=== PATIENT | female | born 1940 | race Caucasian/White ===

== ENCOUNTER 2016-10-22 12:45 | Inpatient (IN) | payer OTHER ==
[2016-10-22] MEDS ORDERED: predniSONE 20 MG TABLET (UD) PO ONE (13:09)
--- NOTE | 2016-10-22 13:17 | PDOC ---
History of Present Illness - General History Source: Patient Exam Limitations: No Limitations - History of Present Illness Initial Comments: 10/22/16 13:18 Patient is a 76 year old female with pmhx of COPD who presents to the ED with cough. Patient states that she was told by Dr. Loya office to present to the ED to be seen by him in [facility] for her worsening cough and bronchitis. She denies any recent cold, head cold or virus. Dr. Arzate is PCP and would like to be notified. <Cora Kapadia - Last Filed: 10/22/16 16:03> <Tj Wyatt - Last Filed: 10/22/16 16:05> - General Chief Complaint: Shortness of Breath Stated Complaint: SOB Time Seen by Provider: 10/22/16 12:57 Past History <Cora Kapadia - Last Filed: 10/22/16 16:03> - Past Medical History Anemia: No Asthma: No Cancer: No Cardiac Disorders: No CVA: No COPD: No CHF: No Dementia: No Diabetes: No GI Disorders: No Disorders: No HTN: Yes Hypercholesterolemia: No Liver Disease: No Seizures: No Thyroid Disease: No Other medical history: CHRONIC BRONCHITIS - Psycho/Social/Smoking Cessation Hx Anxiety: No Suicidal Ideation: No Smoking History: Former smoker Have you smoked in the past 12 months: No If you are a former smoker, when did you quit?: 1954 Information on smoking cessation initiated: No Hx Alcohol Use: No Drug/Substance Use Hx: No Substance Use Type: None Hx Substance Use Treatment: No <Tj Wyatt - Last Filed: 10/22/16 16:05> - Past Medical History Allergies/Adverse Reactions: Allergies Allergy/AdvReac Type Severity Reaction Status Date / Time No Known Drug Allergies Allergy Verified 10/22/16 12:46 Home Medications: Ambulatory Orders No Home Medications 0 dose .ROUTE UTDICT 06/18/12 Review of Systems - Review of Systems Able to Perform ROS?: Yes Comments:: 10/22/16 13:19 General: Absent: fever, chills Respiratory: +cough, +wheezing, +SOB : Absent: nausea, vomiting <Cora Kapadia - Last Filed: 10/22/16 16:03> *Physical Exam - Vital Signs Last Vital Signs Temp Pulse Resp BP Pulse Ox 98.3 F 96 H 18 137/64 93 L 10/22/16 12:47 10/22/16 12:47 10/22/16 12:47 10/22/16 12:47 10/22/16 12:47 <Cora Kapadia - Last Filed: 10/22/16 16:03> - Vital Signs Last Vital Signs Temp Pulse Resp BP Pulse Ox 98.3 F 96 H 18 137/64 93 L 10/22/16 12:47 10/22/16 12:47 10/22/16 12:47 10/22/16 12:47 10/22/16 12:47 - Physical Exam General Appearance: Yes: Nourished, Appropriately Dressed. No: Apparent Distress HEENT: positive: Normal ENT Inspection Neck: positive: Supple. negative: Tender Respiratory/Chest: positive: Lungs Clear (GOOD B/L AIR ENTRY. EXP WHEEZING), Rhonchi Cardiovascular: positive: Regular Rhythm, Regular Rate Gastrointestinal/Abdominal: positive: Soft. negative: Tender Extremity: negative: Pedal Edema Integumentary: positive: Normal Color. negative: Rash Neurologic: positive: Fully Oriented, Alert, Normal Mood/Affect, Normal Response , Motor Strength 5/5 <jT Wyatt - Last Filed: 10/22/16 16:05> Heart Score/ECG Review #1 10/22/16 15:25 ECG was reviewed by Dr. Mario. Impression: Normal sinus rhythm Vent rate 96 bpm <Cora Kapadia - Last Filed: 10/22/16 16:03> ED Treatment Course - LABORATORY CBC & Chemistry Diagram: 10/22/16 15:01 10/22/16 15:00 <Cora Kapadia - Last Filed: 10/22/16 16:03> - LABORATORY CBC & Chemistry Diagram: 10/22/16 15:01 10/22/16 15:00 <Tj Wyatt - Last Filed: 10/22/16 16:05> Medical Decision Making - Medical Decision Making 10/22/16 13:[address] Pepper. 10/22/16 14:51 A call was placed to Dr. Arzate at his office. Awaiting call back for Dr. Kamara. 10/22/16 15:16 A second call was placed to Dr. Kamara. Awaiting call back from Dr. Auguste. <Cora Kapadia - Last Filed: 10/22/16 16:03> *DC/Admit/Observation/Transfer - Attestations Scribe Attestion: 10/22/16 13:19 Documentation prepared by BRITANY Padron, acting as medical delivery driver for Tj Wyatt MD/DO. <Cora Kapadia - Last Filed: 10/22/16 16:03> - Discharge Dispostion Admit: Yes <Tj Wyatt - Last Filed: 10/22/16 16:05> Diagnosis at time of Disposition: CAP (community acquired pneumonia) - Discharge Dispostion Condition at time of disposition: Stable - Referrals Referrals: STAFF,NOT ON [Primary Care Provider] -
[2016-10-22] MEDS ORDERED: predniSONE 20 MG TABLET (UD) ONE (13:21)
[2016-10-22] MEDS: ALBUTEROL SO4 2.5/IPRATROPIUM 0.5 INH SOL 3 ML VIAL.NEB. NEB SCH ×4 (13:22→14:45)
[2016-10-22] MEDS ORDERED: ALBUTEROL SO4 2.5/IPRATROPIUM 0.5 INH SOL 3 ML VIAL.NEB. NEB ONE (13:26)
[2016-10-22] MEDS ORDERED: AZITHROMYCIN IVPB 500 MG in DEXTROSE 5%-WATER - 250 ML IVPB ONE (14:49)
[2016-10-22] MEDS ORDERED: CEFTRIAXONE 1 GM in DEXTROSE 5%-WATER - 100 ML IVPB ONE (14:49)
[2016-10-22] MEDS ORDERED: AZITHROMYCIN IVPB 250 ML IVPB ONE (15:10)
[2016-10-22] MEDS ORDERED: CEFTRIAXONE 50 ML ONE (15:11)
[2016-10-22 15:29] LABS: BASOPHIL 0.2 % (0-2.0); EOSINOPHIL 0.2 % (0-4.5); MCH 28.7 pg (25.7-33.7); MEAN PLT VOLUME 8.2 fl (7.5-11.1); NEUTROPHILS 92.1 % (42.8-82.8); PLATELET COUNT 568 K/MM3 (134-434); RDW 14.5 % (11.6-15.6); WHITE BLOOD COUNT 16.6 K/mm3 (4.0-10.0)
--- NOTE | 2016-10-22 16:03 | CON.PULM ---
Consult Consult Specialty:: PULM/CCM Referred by:: ER Reason for Consultation:: Increasing SOB - History of Present Illness Chief Complaint: Cough / SOB / increasing sputum History of Present Illness: 76 F, well known to me from the outpatient setting. 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 History of chronic bronchitis as well. Presented to the ER after she reported to me increasing productive cough and progressive SOB for the past several days. No travel history or sick contacts. No hemoptysis. No night sweats. - History Source History Provided By: Patient Limitations to Obtaining History: No Limitations - Past Medical History Pulmonary: Yes: Bronchitis, Other (NELI ) - Alcohol/Substance Use Hx Alcohol Use: No - Smoking History Smoking history: Former smoker Have you smoked in the past 12 months: No If you are a former smoker, when did you quit?: 1954 Home Medications - Allergies Allergies/Adverse Reactions: Allergies Allergy/AdvReac Type Severity Reaction Status Date / Time No Known Drug Allergies Allergy Verified 10/22/16 12:46 - Home Medications Home Medications: Ambulatory Orders No Home Medications 0 dose .ROUTE UTDICT 06/18/12 Review of Systems - Review of Systems Constitutional: reports: Fever, Malaise, Weakness. denies: Chills, Night Sweats , Unintentional Wgt. Loss Eyes: reports: No Symptoms HENT: reports: No Symptoms Neck: reports: No Symptoms Cardiovascular: reports: Shortness of Breath. denies: Chest Pain, Edema, Palpitations Respiratory: reports: Cough, SOB, SOB on Exertion, Wheezing. denies: Hemoptysis Gastrointestinal: reports: No Symptoms Genitourinary: reports: No Symptoms Breasts: reports: No Symptoms Reported Musculoskeletal: reports: No Symptoms Integumentary: reports: No Symptoms Neurological: reports: No Symptoms Endocrine: reports: No Symptoms Hematology/Lymphatic: reports: No Symptoms Psychiatric: reports: No Symptoms Physical Exam Vital Sings: Vital Signs Temperature 98.3 F 10/22/16 12:47 Pulse Rate 96 H 10/22/16 12:47 Respiratory Rate 18 10/22/16 12:47 Blood Pressure 137/64 10/22/16 12:47 O2 Sat by Pulse Oximetry (%) 93 L 10/22/16 12:47 Constitutional: Yes: No Distress, Calm Eyes: Yes: Conjunctiva Clear, EOM Intact HENT: Yes: Atraumatic, Normocephalic Neck: Yes: Supple, Trachea Midline Cardiovascular: Yes: Regular Rate and Rhythm Respiratory: Yes: Cough, Diminished, Rhonchi, SOB. No: Accessory Muscle Use, Rales, Stridor, Tachypnea, Wheezes ...Inspection: Yes: WNL ...Clubbing: No Gastrointestinal: Yes: Normal Bowel Sounds, Soft Renal/: Yes: WNL Musculoskeletal: Yes: WNL Extremities: Yes: WNL Edema: No Peripheral Pulses WNL: Yes Integumentary: Yes: WNL Neurological: Yes: WNL, Alert, Oriented ...Motor Strength: WNL Psychiatric: Yes: WNL, Alert, Oriented Labs: CBC, BMP 10/22/16 15:01 Imaging - Results Chest X-ray: Report Reviewed, Image Reviewed (RLL infiltrate) Problem List - Problems (1) CAP (community acquired pneumonia) Code(s): J18.9 - PNEUMONIA, UNSPECIFIED ORGANISM (2) Chronic bronchitis Code(s): J42 - UNSPECIFIED CHRONIC BRONCHITIS Assessment/Plan PLAN: Patient received Rocephin/Zithromax already -> Can continue Check sputum Check urine antigen O2 as needed BD TX VTE prophylaxis Daily Medrol for CAP Thank you. Dr Pepper
[2016-10-22 16:04] LABS: CALCIUM 8.5 mg/dL (8.5-10.1); CREATININE 0.7 mg/dL (0.55-1.02)
[2016-10-22] MEDS ORDERED: ALBUTEROL SO4 0.083% IH SOL 2.5 MG/3 ML VIAL.NEB. NEB PRN (16:05)
--- NOTE | 2016-10-22 17:39 | HP ---
CHIEF COMPLAINT: Cough PCP: Dr. Arzate [facility] Coordinator: Dr. Pepper HISTORY OF PRESENT ILLNESS: This is a 76 year old female with a history of HTN ( takes meds "when I need it"), pulmonary NELI, and chronic bronchitis who presented to the ED today complaining of one week of worsening cough productive of green sputum and some associated shortness of breath. She denies hemoptysis, fevers/chills, fatigue/malaise, chest pain, or any other symptoms. ER course was notable for: (1) CXR: Segmental RLL infiltrate (2) SpO2 93% on RA (3) SIRS 16.6, HR 96 Recent Travel: None Social History: Lives alone but has help from two sisters. Retired [employer]. Smoking: Former smoker, quit 1954. Alcohol: None Allergies No Known Drug Allergies Allergy (Verified 10/22/16 12:46) HOME MEDICATIONS: Home Medications Medication Instructions Recorded No Home Medications 0 dose .ROUTE UTDICT 06/18/12 REVIEW OF SYSTEMS CONSTITUTIONAL: Absent: fever, chills, diaphoresis, generalized weakness, malaise, loss of appetite, weight change HEENT: Absent: rhinorrhea, nasal congestion, throat pain, throat swelling, difficulty swallowing, mouth swelling, ear pain, eye pain, visual changes CARDIOVASCULAR: Absent: chest pain, syncope, palpitations, irregular heart rate, lightheadedness , peripheral edema RESPIRATORY: See HPI GASTROINTESTINAL: Absent: abdominal pain, abdominal distension, nausea, vomiting, diarrhea, constipation, melena, hematochezia GENITOURINARY: Absent: dysuria, frequency, urgency, hesitancy, hematuria, flank pain, genital pain MUSCULOSKELETAL: Absent: myalgia, arthralgia, joint swelling, back pain, neck pain SKIN: Absent: rash, itching, pallor HEMATOLOGIC/IMMUNOLOGIC: Absent: easy bleeding, easy bruising, lymphadenopathy, frequent infections ENDOCRINE: Absent: unexplained weight gain, unexplained weight loss, heat intolerance, cold intolerance NEUROLOGIC: Absent: headache, focal weakness or paresthesias, dizziness, unsteady gait, seizure, mental status changes, bladder or bowel incontinence PSYCHIATRIC: Absent: anxiety, depression, suicidal or homicidal ideation, hallucinations. PHYSICAL EXAMINATION GENERAL: Awake, alert, and fully oriented, in no acute distress. HEAD: Normal with no signs of trauma. EYES: Pupils equal, round and reactive to light, extraocular movements intact, sclera anicteric, conjunctiva clear. No lid lag. EARS, NOSE, THROAT: Ears normal, nares patent, oropharynx clear without exudates. Moist mucous membranes. NECK: Normal range of motion, supple without lymphadenopathy, JVD, or masses. LUNGS: Ronchi at right base. No tachypnea or accessory muscle use. HEART: Mildly tachycardic, regular rate and rhythm, normal S1 and S2 without murmur, rub or gallop. ABDOMEN: Soft, nontender, not distended, normoactive bowel sounds, no guarding, no rebound, no masses. No hepatomegaly or splenomegaly. MUSCULOSKELETAL: Normal range of motion at all joints. No bony deformities or tenderness. No CVA tenderness. UPPER EXTREMITIES: 2+ pulses, warm, well-perfused. No cyanosis. No clubbing. Cap refill <2 seconds. No peripheral edema. LOWER EXTREMITIES: 2+ pulses, warm, well-perfused. No calf tenderness. No peripheral edema. NEUROLOGICAL: Cranial nerves II-XII intact. Normal speech. Normal gait. PSYCHIATRIC: Cooperative. Good eye contact. Appropriate mood and affect. SKIN: Warm, dry, normal turgor, no rashes or lesions noted. ASSESSMENT/PLAN: 76 year old female with sepsis secondary to community-acquired pneumonia. Problem List - Problem (1) CAP (community acquired pneumonia) Assessment/Plan: -Continue Ceftriaxone/Azithromycin -Follow up blood cultures, sputum cultures, urine antigens -O2 2L via nasal cannula -Solu-Medrol 40mg IVPB daily per pulmonology Code(s): J18.9 - PNEUMONIA, UNSPECIFIED ORGANISM (2) Sepsis Assessment/Plan: -Cultures and antibiotics as above -Tylenol 650mg q6h prn fever -Follow WBC Code(s): A41.9 - SEPSIS, UNSPECIFIED ORGANISM (3) Chronic bronchitis Assessment/Plan: -Continue Brovana Code(s): J42 - UNSPECIFIED CHRONIC BRONCHITIS (4) Hypertension Assessment/Plan: -At goal -Continue Norvasc 2.5mg daily Code(s): I10 - ESSENTIAL (PRIMARY) HYPERTENSION (5) DVT prophylaxis Assessment/Plan: -Heparin sq 5000 units tid Code(s): UGL3665 - Visit type - Emergency Visit Emergency Visit: Yes ED Registration Date: 10/22/16 Care time: The patient presented to the Emergency Department on the above date and was hospitalized for further evaluation of their emergent condition. - New Patient This patient is new to me today: Yes Date on this admission: 10/22/16 - Critical Care Critical Care patient: No
[2016-10-22] MEDS ORDERED: ACETAMINOPHEN 325 MG TABLET (FP) PO PRN (17:40)
[2016-10-22] MEDS ORDERED: ONDANSETRON 4 MG/2 ML VIAL IVPB PRN (17:40)
[2016-10-22] MEDS: DOCUSATE SODIUM 100 MG CAPSULE (FP) PO SCH (22:30)
[2016-10-22] MEDS: ARFORMOTEROL TARTRATE 15 MCG/2 ML VIAL NEB SCH (22:40)
[2016-10-22] MEDS: HEPARIN NA (PORCINE) 5,000 UNITS/ML 1ML VIAL SQ SCH (23:30)
[2016-10-22 23:35] VITALS: BMI 24.5
[2016-10-23] MEDS ORDERED: guaiFENesin 200 MG/10 ML 10 ML UNIT-DOSE CUPS PO PRN (01:38)
[2016-10-23] MEDS: DOCUSATE SODIUM 100 MG CAPSULE (FP) PO SCH ×3 (06:38→22:35)
[2016-10-23 08:01] LABS: BASOPHIL 0.2 % (0-2.0); MCH 29.5 pg (25.7-33.7); MCHC 33.4 g/dl (32.0-36.0); MEAN CELL VOLUME 88.2 fl (80-96); MEAN PLT VOLUME 7.8 fl (7.5-11.1); PLATELET COUNT 572 K/MM3 (134-434); RDW 14.2 % (11.6-15.6); WHITE BLOOD COUNT 10.7 K/mm3 (4.0-10.0)
[2016-10-23 08:18] LABS: ALBUMIN 2.3 g/dl (3.4-5.0); ALK PHOS 254 U/L (45-117); ANION GAP 10 (8-16); BILIRUBIN,TOTAL 0.3 mg/dL (0.2-1.0); CALCIUM 9.1 mg/dL (8.5-10.1); CO2 26 mmol/L (21-32); CREATININE 0.6 mg/dL (0.55-1.02); GLUCOSE,RANDOM 102 mg/dL (74-106); MAGNESIUM 2.3 mg/dL (1.8-2.4); SGOT/AST 33 U/L (15-37); SGPT/ALT 43 U/L (12-78); TOT PROT 7.2 g/dl (6.4-8.2)
[2016-10-23] MEDS: ARFORMOTEROL TARTRATE 15 MCG/2 ML VIAL NEB SCH ×2 (09:05→22:46)
[2016-10-23] MEDS: CEFTRIAXONE 50 ML IVPB SCH (09:10)
[2016-10-23] MEDS: HEPARIN NA (PORCINE) 5,000 UNITS/ML 1ML VIAL SQ SCH ×2 (09:11→22:31)
[2016-10-23] MEDS: amLODIPine BESYLATE 5 MG TABLET (FP) PO SCH (09:11)
[2016-10-23] MEDS: AZITHROMYCIN IVPB 250 ML IVPB SCH (09:11)
[2016-10-23] MEDS: methylPREDNISolone NA SUCC 40 MG/1 ML VIAL IVPB SCH (09:11)
[2016-10-23] MEDS ORDERED: PNEUMOC 13-VAL CONJ-DIP CRM/PF 0.5 ML DISP.SYRIN IM ONE (10:00)
--- NOTE | 2016-10-23 13:33 | EKG ---
Test Reason : Blood Pressure : / mmHG Vent. Rate : 096 BPM Atrial Rate : 096 BPM P-R Int : 144 ms QRS Dur : 088 ms QT Int : 386 ms P-R-T Axes : 049 010 050 degrees QTc Int : 487 ms NORMAL SINUS RHYTHM NORMAL ECG WHEN COMPARED WITH ECG OF 18-JUN-2012 15:33, VENT. RATE HAS INCREASED BY 32 BPM Confirmed by TYREL OSBORNE MD ([id number]) on 10/23/2016 1:33:17 PM Referred By: Confirmed By:TYREL OSBORNE MD
--- NOTE | 2016-10-23 14:10 | PN ---
Physical Exam: SUBJECTIVE: Patient seen and examined. feels better than when she came in. intermittent productive cough. denies fevers, chills, n/v, chest pain, sob. breathing room air comfortably. OBJECTIVE: Vital Signs Period Temp Pulse Resp BP Sys/Le Pulse Ox Last 24 Hr 97.3 F-97.7 F 67-81 20-20 128-139/59-60 GENERAL: The patient is awake, alert, and fully oriented, in no acute distress. HEAD: Normal with no signs of trauma. EYES: PERRL, extraocular movements intact, sclera anicteric, conjunctiva clear. No ptosis. ENT: Ears normal, nares patent, oropharynx clear without exudates, moist mucous membranes. NECK: Trachea midline, full range of motion, supple. LUNGS: RLL with expiratory wheezing and scattered crackles, left lung clear. HEART: Regular rate and rhythm, S1, S2 without murmur, rub or gallop. ABDOMEN: Soft, nontender, nondistended, normoactive bowel sounds, no guarding, no rebound, EXTREMITIES: 2+ pulses, warm, well-perfused, no edema. NEUROLOGICAL: Normal speech Laboratory Results - last 24 hr 10/23/16 10/23/16 07:00 07:00 WBC 10.7 H D RBC 3.76 Hgb 11.1 Hct 33.2 MCV 88.2 MCHC 33.4 RDW 14.2 Plt Count 572 H MPV 7.8 Neutrophils % 87.0 H Lymphocytes % 7.4 L D Monocytes % 5.4 Eosinophils % 0.0 D Basophils % 0.2 Sodium 141 Potassium 4.0 D Chloride 105 Carbon Dioxide 26 Anion Gap 10 BUN 15 D Creatinine 0.6 Creat Clearance w eGFR > 60 Random Glucose 102 Calcium 9.1 Magnesium 2.3 Total Bilirubin 0.3 D AST 33 D ALT 43 D Alkaline Phosphatase 254 H D Total Protein 7.2 Albumin 2.3 L D Active Medications Acetaminophen (Tylenol -) 650 mg PO Q4H PRN PRN Reason: FEVER OR PAIN Albuterol Sulfate (Ventolin 0.083% Nebulizer Soln -) 1 amp NEB Q4H PRN PRN Reason: SHORT OF BREATH/WHEEZING Amlodipine Besylate (Norvasc -) 2.5 mg PO DAILY [facility] Last Admin: 10/23/16 09:11 Dose: 2.5 mg Arformoterol Tartrate (Brovana (Restricted To Pulmonology/Resp) -) 1 amp NEB BID [facility] Last Admin: 10/23/16 09:05 Dose: 1 amp Docusate Sodium (Colace -) 100 mg PO TID [facility] Last Admin: 10/23/16 14:02 Dose: Not Given Guaifenesin (Robitussin -) 10 ml PO Q4H PRN PRN Reason: COUGH Last Admin: 10/23/16 02:14 Dose: 10 ml Heparin Sodium (Porcine) (Heparin -) 5,000 unit SQ BID [facility] Last Admin: 10/23/16 09:11 Dose: 5,000 unit Azithromycin (Zithromax 500mg Ivpb (Pre-Docked)) 250 mls @ 250 mls/hr IVPB DAILY [facility] Last Admin: 10/23/16 09:11 Dose: 250 mls/hr Ceftriaxone Sodium (Rocephin 1gm Ivpb (Pre-Docked)) 50 mls @ 100 mls/hr IVPB DAILY [facility] Last Admin: 10/23/16 09:10 Dose: 100 mls/hr Methylprednisolone Sodium Succinate (Solu-Medrol -) 40 mg IVPB DAILY [facility] Last Admin: 10/23/16 09:11 Dose: 40 mg Ondansetron HCl (Zofran Injection) 4 mg IVPB Q6H PRN PRN Reason: NAUSEA ASSESSMENT/PLAN: 76 yr old woman with hx of HTN, pulmonary NELI, chronic bronchitis presents to the ED with productive cough and SOB. #Sepsis secondary to CAP (elevated wbc, RLL infiltrateon cxry, HR96) - rocephin 1gm daily, zithromax 500mg IV daily -- started 10/23 - solumedrol 40mg IVPB daily - bld cx and sputum cx pending - urine ag pending - robutussin, ventolin prn - brovana 1 neb BID - Dr. Fagan consulted #HTN - norvasc 2.5mg daily #DVT - hep TID #Diet: sodium controlled Visit type - Emergency Visit Emergency Visit: Yes ED Registration Date: 10/22/16 Care time: The patient presented to the Emergency Department on the above date and was hospitalized for further evaluation of their emergent condition. - New Patient This patient is new to me today: Yes Date on this admission: 10/23/16 - Critical Care Critical Care patient: No
--- NOTE | 2016-10-23 15:46 | PN ---
Teaching Attending Note Name of Resident: Ej Hahn ATTENDING PHYSICIAN STATEMENT I saw and evaluated the patient. I reviewed the resident's note and discussed the case with the resident. I agree with the resident's findings and plan as documented. SUBJECTIVE: Patient feels better. OBJECTIVE: Vital Signs Period Temp Pulse Resp BP Sys/Le Pulse Ox Last 24 Hr 97.3 F-97.8 F 67-84 20-20 122-139/59-60 95-96 HEART: S1 S2, RRR LUNGS: Diffuse crackles worst at right base ABDOMEN: Soft, non-tender, non-distended, normal BS EXTREMITIES: No edema ASSESSMENT AND PLAN: This is a 76-year-old woman with a history of HTN,, pulmonary NELI, and chronic bronchitis who presented to the ED with cough productive of green sputum and shortness of breath. 1. Sepsis secondary to pneumonia - Improving - Continue Rocephin, Zithromax (day 2) - Sputum culture pending - Blood cultures negative after 24 hrs - Urine Legionella and Pneumococcus Ag negative 2. Chronic bronchitis - Continue Brovana, Albuterol nebs as needed, SoluMedrol 3. Hypertension - Continue Norvasc 4. Pulmonary NELI
--- NOTE | 2016-10-23 15:53 | PN ---
Progress Note (short form) - Note Progress Note: OOB to chair. Feels better today. Congested cough is slightly better. No hemoptysis. Less SOB. WBC improving. Intake & Output 10/20/16 10/21/16 10/22/16 10/23/16 23:59 23:59 23:59 23:59 Intake Total 250 Balance 250 Weight 134 lb 8 oz Last Vital Signs Temp Pulse Resp BP Pulse Ox 97.8 F 75 20 128/60 96 10/23/16 14:00 10/23/16 14:00 10/23/16 14:00 10/23/16 08:19 10/23/16 09:40 Active Medications Acetaminophen (Tylenol -) 650 mg PO Q4H PRN PRN Reason: FEVER OR PAIN Albuterol Sulfate (Ventolin 0.083% Nebulizer Soln -) 1 amp NEB Q4H PRN PRN Reason: SHORT OF BREATH/WHEEZING Amlodipine Besylate (Norvasc -) 2.5 mg PO DAILY [facility] Last Admin: 10/23/16 09:11 Dose: 2.5 mg Arformoterol Tartrate (Brovana (Restricted To Pulmonology/Resp) -) 1 amp NEB BID [facility] Last Admin: 10/23/16 09:05 Dose: 1 amp Docusate Sodium (Colace -) 100 mg PO TID [facility] Last Admin: 10/23/16 14:02 Dose: Not Given Guaifenesin (Robitussin -) 10 ml PO Q4H PRN PRN Reason: COUGH Last Admin: 10/23/16 02:14 Dose: 10 ml Heparin Sodium (Porcine) (Heparin -) 5,000 unit SQ BID [facility] Last Admin: 10/23/16 09:11 Dose: 5,000 unit Azithromycin (Zithromax 500mg Ivpb (Pre-Docked)) 250 mls @ 250 mls/hr IVPB DAILY [facility] Last Admin: 10/23/16 09:11 Dose: 250 mls/hr Ceftriaxone Sodium (Rocephin 1gm Ivpb (Pre-Docked)) 50 mls @ 100 mls/hr IVPB DAILY [facility] Last Admin: 10/23/16 09:10 Dose: 100 mls/hr Methylprednisolone Sodium Succinate (Solu-Medrol -) 40 mg IVPB DAILY [facility] Last Admin: 10/23/16 09:11 Dose: 40 mg Ondansetron HCl (Zofran Injection) 4 mg IVPB Q6H PRN PRN Reason: NAUSEA Constitutional: Yes: No Distress Eyes: Yes: Conjunctiva Clear, EOM Intact HENT: Yes: Atraumatic, Normocephalic Neck: Yes: Supple, Trachea Midline Cardiovascular: Yes: Regular Rate and Rhythm Respiratory: Yes: Cough, RLL coarse Rhonchi No: Accessory Muscle Use, Rales, Stridor, Tachypnea, Wheezes ...Inspection: Yes: WNL ...Clubbing: No Gastrointestinal: Yes: Normal Bowel Sounds, Soft Renal/: Yes: WNL Musculoskeletal: Yes: WNL Extremities: Yes: WNL Edema: No Peripheral Pulses WNL: Yes Integumentary: Yes: WNL Neurological: Yes: WNL, Alert, Oriented ...Motor Strength: WNL Psychiatric: Yes: WNL, Alert, Oriented Labs: Laboratory Results - last 24 hr 10/22/16 10/23/16 10/23/16 15:00 07:00 07:00 WBC 10.7 H D RBC 3.76 Hgb 11.1 Hct 33.2 MCV 88.2 MCHC 33.4 RDW 14.2 Plt Count 572 H MPV 7.8 Neutrophils % 87.0 H Lymphocytes % 7.4 L D Monocytes % 5.4 Eosinophils % 0.0 D Basophils % 0.2 Sodium 136 141 Potassium 3.2 L 4.0 D Chloride 101 105 Carbon Dioxide 24 26 Anion Gap 11 10 BUN 10 D 15 D Creatinine 0.7 D 0.6 Creat Clearance w eGFR > 60 Random Glucose 109 H D 102 Calcium 8.5 9.1 Magnesium 2.3 Total Bilirubin 0.3 D AST 33 D ALT 43 D Alkaline Phosphatase 254 H D Total Protein 7.2 Albumin 2.3 L D Problem List - Problems (1) CAP (community acquired pneumonia) Code(s): J18.9 - PNEUMONIA, UNSPECIFIED ORGANISM (2) Chronic bronchitis - > likely due to known NELI history Code(s): J42 - UNSPECIFIED CHRONIC BRONCHITIS Assessment/Plan Rocephin/Zithromax daily Check sputum O2 as needed BD TX VTE prophylaxis Daily Medrol for CAP CXR in AM VTE prophylaxis Dr Pepper Problem List - Problems (1) CAP (community acquired pneumonia) Code(s): J18.9 - PNEUMONIA, UNSPECIFIED ORGANISM (2) Chronic bronchitis Code(s): J42 - UNSPECIFIED CHRONIC BRONCHITIS
[2016-10-24] MEDS: DOCUSATE SODIUM 100 MG CAPSULE (FP) PO SCH (06:40)
[2016-10-24 08:07] VITALS: BP 146/62; PULSE 73; TEMP 97.8
[2016-10-24 08:26] LABS: BASOPHIL 0.4 % (0-2.0); EOSINOPHIL 0.1 % (0-4.5); MCHC 31.7 g/dl (32.0-36.0); MEAN CELL VOLUME 88.3 fl (80-96); MEAN PLT VOLUME 7.8 fl (7.5-11.1); NEUTROPHILS 77.6 % (42.8-82.8); PLATELET COUNT 635 K/MM3 (134-434); RDW 14.2 % (11.6-15.6); WHITE BLOOD COUNT 12.1 K/mm3 (4.0-10.0)
[2016-10-24 08:53] LABS: CALCIUM 8.6 mg/dL (8.5-10.1)
[2016-10-24 08:57] LABS: CREATININE 0.7 mg/dL (0.55-1.02)
[2016-10-24] MEDS: ARFORMOTEROL TARTRATE 15 MCG/2 ML VIAL NEB SCH (09:30)
[2016-10-24] MEDS: methylPREDNISolone NA SUCC 40 MG/1 ML VIAL IVPB SCH (09:36)
[2016-10-24] MEDS: HEPARIN NA (PORCINE) 5,000 UNITS/ML 1ML VIAL SQ SCH (09:36)
[2016-10-24] MEDS: amLODIPine BESYLATE 5 MG TABLET (FP) PO SCH (09:36)
[2016-10-24] MEDS: AZITHROMYCIN IVPB 250 ML IVPB SCH (09:36)
[2016-10-24] MEDS: CEFTRIAXONE 50 ML IVPB SCH (09:36)
--- NOTE | 2016-10-24 09:44 | DS ---
Physical Exam: SUBJECTIVE: Patient seen and examined feels better, cough has improved. denied fever, chills. eating/toileting/ambulating without difficulty. OBJECTIVE: Vital Signs Period Temp Pulse Resp BP Sys/Le Pulse Ox Last 24 Hr 97.8 F-98.1 F 63-75 20-20 125-146/62-66 95-95 PHYSICAL EXAM GENERAL: The patient is awake, alert, and fully oriented, in no acute distress. EYES: PERRL, extraocular movements intact, sclera anicteric, conjunctiva clear. No ptosis. ENT: oropharynx clear without exudates, moist mucous membranes. LUNGS: CTAB HEART: Regular rate and rhythm, S1, S2 ABDOMEN: Soft, nontender, nondistended, normoactive bowel sounds EXTREMITIES: 2+ pulses, warm, well-perfused, no edema. LABS Laboratory Results - last 24 hr 10/24/16 10/24/16 07:45 07:45 WBC 12.1 H RBC 3.92 Hgb 11.0 Hct 34.6 MCV 88.3 MCHC 31.7 L RDW 14.2 Plt Count 635 H MPV 7.8 Neutrophils % 77.6 Lymphocytes % 13.8 D Monocytes % 8.1 Eosinophils % 0.1 D Basophils % 0.4 Sodium 143 Potassium 3.8 Chloride 107 Carbon Dioxide 25 Anion Gap 11 BUN 17 Creatinine 0.7 Random Glucose 78 D Calcium 8.6 Microbiology 10/22/16 15:01 Blood - Peripheral Venous Blood Culture - Preliminary NO GROWTH OBTAINED AFTER 72 HOURS, INCUBATION TO CONTINUE FOR 2 DAYS. 10/22/16 15:01 Blood - Peripheral Venous Blood Culture - Preliminary NO GROWTH OBTAINED AFTER 72 HOURS, INCUBATION TO CONTINUE FOR 2 DAYS. 10/23/16 16:20 Sputum - Expectorated Gram Stain - Final 10/23/16 16:20 Sputum - Expectorated Sputum Culture - Preliminary NORMAL RESPIRATORY CHRISTIAN 10/23/16 13:15 Urine For Antigen Detection Legionella Antigen - Final 10/23/16 13:15 Urine For Antigen Detection Streptococcus pneumoniae Antigen (M - Final HOSPITAL COURSE: Date of Admission:10/22/16 - Date of Discharge: 10/24/16 76 yr old woman with hx of HTN, pulmonary NELI, chronic bronchitis presents to the ED with productive cough and SOB admitted for sepsis secondary to CAP ( elevated wbc, RLL infiltrateon cxry, HR96). She was treated with rocephin 1gm started 10/22 until 10/24, azithromycin 500mg iv 10/22 to 10/24 and solumedrol 40mg IV 10/23 to 10/24 and she had received 60mg po in the ED. Blood sputum and urine cultures were negative for pathology. She was discharged on 4-day prednisone taper and ceftin BID for 7 days to complete a 10 day course of antibiotics to treat CAP. Minutes to complete discharge: 40 Discharge Summary Reason For Visit: COMMUNITY ACQUIRED PNEUMONIA Current Active Problems CAP (community acquired pneumonia) (Acute) Sepsis (Acute) Chronic bronchitis (Chronic) Hypertension (Chronic) Condition: Improved - Instructions Diet, Activity, Other Instructions: resume your home medications and inhaler. Take your antibiotics as prescribed, Camila 500mg 1 every 12 hours for 7 days. Drink plenty of water. Complete your prednisone taper: 40mg for 1 day 30mg for 1 day 20mg for 1 day 10mg for 1 day. follow-up with in one week and in one week. If you develop chest pain, trouble breathing or any new symptoms return to the hospital. Referrals: STAFF,NOT ON [Primary Care Provider] - Rusty Pepper MD [Staff Physician] - Rajat Arzate [Non Staff, Medical] - Disposition: HOME - Home Medications Comprehensive Discharge Medication List: Ambulatory Orders Amlodipine Besylate [Norvasc -] 2.5 mg PO DAILY 10/22/16 Albuterol 0.083% Nebulizer Yvrose [Ventolin 0.083% Nebulizer Soln -] 1 amp NEB Q4H PRN #0 amp 10/24/16 Cefuroxime Axetil [Ceftin -] 500 mg PO Q12H #14 tablet 10/24/16 Prednisone [Deltasone -] 10 mg PO DAILY #10 tablet 10/24/16 This patient is new to me today: No Emergency Visit: No Critical Care patient: No - Discharge Referral Referred to [facility] Med P.C.: No
--- NOTE | 2016-10-24 14:01 | PN ---
Teaching Attending Note Name of Resident: Ej Hahn ATTENDING PHYSICIAN STATEMENT I saw and evaluated the patient. I reviewed the resident's note and discussed the case with the resident. I agree with the resident's findings and plan as documented. Feeling better, No shortness of breath , no chest pain, Vital Signs Temperature 97.8 F 10/24/16 08:00 Pulse Rate 73 10/24/16 08:00 Respiratory Rate 20 10/24/16 08:00 Blood Pressure 146/62 10/24/16 08:00 O2 Sat by Pulse Oximetry (%) 96 10/24/16 09:00 CBCD WBC 12.1 K/mm3 (4.0-10.0) H 10/24/16 07:45 RBC 3.92 M/mm3 (3.60-5.2) 10/24/16 07:45 Hgb 11.0 GM/dL (10.7-15.3) 10/24/16 07:45 Hct 34.6 % (32.4-45.2) 10/24/16 07:45 MCV 88.3 fl (80-96) 10/24/16 07:45 MCHC 31.7 g/dl (32.0-36.0) L 10/24/16 07:45 RDW 14.2 % (11.6-15.6) 10/24/16 07:45 Plt Count 635 K/MM3 (134-434) H 10/24/16 07:45 MPV 7.8 fl (7.5-11.1) 10/24/16 07:45 CMP Sodium 143 mmol/L (136-145) 10/24/16 07:45 Potassium 3.8 mmol/L (3.5-5.1) 10/24/16 07:45 Chloride 107 mmol/L (98-107) 10/24/16 07:45 Carbon Dioxide 25 mmol/L (21-32) 10/24/16 07:45 Anion Gap 11 (8-16) 10/24/16 07:45 BUN 17 mg/dL (7-18) 10/24/16 07:45 Creatinine 0.7 mg/dL (0.55-1.02) 10/24/16 07:45 Creat Clearance w eGFR > 60 (>60) 10/23/16 07:00 Random Glucose 78 mg/dL (74-106) D 10/24/16 07:45 Calcium 8.6 mg/dL (8.5-10.1) 10/24/16 07:45 Total Bilirubin 0.3 mg/dL (0.2-1.0) D 10/23/16 07:00 AST 33 U/L (15-37) D 10/23/16 07:00 ALT 43 U/L (12-78) D 10/23/16 07:00 Alkaline Phosphatase 254 U/L (45-117) H D 10/23/16 07:00 Total Protein 7.2 g/dl (6.4-8.2) 10/23/16 07:00 Albumin 2.3 g/dl (3.4-5.0) L D 10/23/16 07:00 Home Medications Medication Instructions Recorded Amlodipine Besylate [Norvasc -] 2.5 mg PO DAILY 10/22/16 Albuterol 0.083% Nebulizer Yvrose 1 amp NEB Q4H PRN #0 amp 10/24/16 [Ventolin 0.083% Nebulizer Soln -] Cefuroxime Axetil [Ceftin -] 500 mg PO Q12H #14 tablet 10/24/16 Prednisone [Deltasone -] 10 mg PO DAILY #10 tablet 10/24/16 HEART: S1 S2, RRR LUNGS: Decreased BS BL otherwise within Normal , mild wheeze on the right upper lung area ABDOMEN: Soft, non-tender, non-distended, normal BS EXTREMITIES: No edema Neuro: AA0X3 ASSESSMENT AND PLAN: This is a 76-year-old woman with a history of HTN,, pulmonary NELI, and chronic bronchitis who presented to the ED with cough productive of green sputum and shortness of breath. # s/p Sepsis secondary to pneumonia Improving s/p IV Rocephin and received Zithromax 10/26 , will discharge the patient on Ceftin 500mg q12 x 7 more days and and Prednisone 40mg tapered dose. Blood cultures negative so far. Urine Legionella and Pneumococcus Ag negative # Chronic bronchitis continue Brovana, Albuterol nebs as needed follow with within a week period. # Hypertension continue Norvasc discharge patient home
== END 2016-10-24 13:12 | disposition home or self-care (01) | DRG 871 ==
LOC: JER 12:45 → JERBED 16:05 → OBSVTOIN 18:43 → JERBED 18:43 → J6S 23:16
PROVIDERS: ADMIT Internal Medicine; ATTEND Internal Medicine
DX: A41.9 Sepsis, unspecified organism (principal); J18.9 Pneumonia, unspecified organism; A31.0 Pulmonary mycobacterial infection; J42 Unspecified chronic bronchitis; Z87.891 Personal history of nicotine dependence; I10 Essential (primary) hypertension
CPT/HCPCS: 36415; 71010-TC; 71020-TC; 80048; 80053; 83735; 85025; 87040; 87070; 87205; 87899; 90670; 93005; 93010; 94640; 99282-25; G0378; J1644

== ENCOUNTER 2018-08-30 15:44 | Inpatient (IN) | payer OTHER ==
[2018-08-30 15:50] VITALS: BMI 25.2
--- NOTE | 2018-08-30 16:03 | PDOC ---
History of Present Illness <Mary Arellano - Last Filed: 08/30/18 22:09> - History of Present Illness Initial Comments: 08/30/18 16:21 The patient is a 78 year old female with a history of HTN, COPD who presents for evaluation of chest pain and shortness of breath. The patient reports a 2-3 days history of worsening shortness of breath and intermittent achy substernal chest pain prompting her presentation to the ED for further evaluation. She notes that her shortness of breath worsens with exertion and reports a non- productive cough. She otherwise denies fevers, chills, nausea, vomiting, abdominal pain, or changes with urination or bowel movements. <Tye Sharpe - Last Filed: 08/30/18 22:28> - General Chief Complaint: Chest Pain Stated Complaint: CHEST PAIN Time Seen by Provider: 08/30/18 16:03 Past History <Mary Arellano - Last Filed: 08/30/18 22:09> - Past Medical History Anemia: No Asthma: No Cancer: No Cardiac Disorders: No CVA: No COPD: No CHF: No Dementia: No Diabetes: No GI Disorders: No Disorders: No HTN: Yes Hypercholesterolemia: No Liver Disease: No Seizures: No Thyroid Disease: No - Suicide/Smoking/Psychosocial Hx Smoking History: Never smoked Have you smoked in the past 12 months: No If you are a former smoker, when did you quit?: 1954 Information on smoking cessation initiated: No Hx Alcohol Use: No Drug/Substance Use Hx: No Substance Use Type: None Hx Substance Use Treatment: No <Tye Sharpe - Last Filed: 08/30/18 22:28> - Past Medical History Allergies/Adverse Reactions: Allergies Allergy/AdvReac Type Severity Reaction Status Date / Time No Known Drug Allergies Allergy Verified 08/30/18 15:50 Home Medications: Ambulatory Orders Anoro Ellipta 1 inh IH DAILY 08/30/18 Losartan Potassium [Cozaar -] 50 mg PO DAILY 08/30/18 Nitrofurantoin Macrocrystal [Nitrofurantoin] 100 mg PO BID 08/30/18 Review of Systems - Review of Systems Comments:: 08/30/18 16:30 Constitutional: No fevers, chills, fatigue, malaise HEENT: No Rhinorrhea, nasal congestion, visual changes Cardiovascular: Chest pain. No syncope, palpitations, lightheadedness Respiratory: SOB, Cough. No Hemoptysis, Gastrointestinal: No Abdominal pain, Nausea, Vomiting, Constipation, Diarrhea, Melena Genitourinary: No Dysuria, Frequency, Urgency, Hesitancy, Hematuria, Flank pain Musculoskeletal: No Myalgia, arthralgia Skin: No rashes, itching, bruising, pallor Neurologic: No Headache, Dizziness, Numbness, Weakness, or Tingling Psychiatric: No Hallucinations. No SI or HI <Tye Sharpe - Last Filed: 08/30/18 22:28> *Physical Exam - Vital Signs Last Vital Signs Temp Pulse Resp BP Pulse Ox 98.4 F 107 H 20 148/54 L 96 08/30/18 20:35 08/30/18 18:41 08/30/18 18:41 08/30/18 18:41 08/30/18 18:41 <Mary Arellano - Last Filed: 08/30/18 22:09> - Vital Signs Last Vital Signs Temp Pulse Resp BP Pulse Ox 98.1 F 94 H 16 198/76 H 95 08/30/18 15:44 08/30/18 15:44 08/30/18 15:44 08/30/18 15:44 08/30/18 15:44 - Physical Exam Comments: 08/30/18 16:34 General Appearance: Nourished. No Apparent Distress HEENT: No Pharyngeal Erythema, Tonsillar Exudate, Tonsillar Erythema Neck: No Cervical Lymphadenopathy Respiratory/Chest: Normal Breath Sounds. Bibasilar rales noted on exam. No Rhonchi, Wheezing Cardiovascular: Regular Rhythm, Regular Rate. No Murmur, Gallops, Rubs Gastrointestinal/Abdominal: Normal Bowel Sounds, Soft. No Guarding, Rebound, Tenderness Musculoskeletal: No CVA Tenderness Extremity: Normal Capillary Refill Integumentary: Normal Color, Dry, Warm Neurologic: Fully Oriented, Alert, Normal Mood/Affect, Normal Response, <Tye Sharpe - Last Filed: 08/30/18 22:28> Moderate Sedation - Procedure Monitoring Vital Signs: Procedure Monitoring Vital Signs Temperature 98.4 F 08/30/18 20:35 Pulse Rate 107 H 08/30/18 18:41 Respiratory Rate 20 08/30/18 18:41 Blood Pressure 148/54 L 08/30/18 18:41 O2 Sat by Pulse Oximetry (%) 96 08/30/18 18:41 <Mary Arellano - Last Filed: 08/30/18 22:09> - Procedure Monitoring Vital Signs: Procedure Monitoring Vital Signs Temperature 98.1 F 08/30/18 15:44 Pulse Rate 94 H 08/30/18 15:44 Respiratory Rate 16 08/30/18 15:44 Blood Pressure 198/76 H 08/30/18 15:44 O2 Sat by Pulse Oximetry (%) 95 08/30/18 15:44 <Tye Sharpe - Last Filed: 08/30/18 22:28> ED Treatment Course - LABORATORY CBC & Chemistry Diagram: 08/30/18 16:40 08/30/18 16:40 - ADDITIONAL ORDERS Additional order review: Laboratory Results 08/30/18 08/30/18 08/30/18 18:55 18:55 18:55 PT with INR INR PTT (Actin FS) VBG pH 7.45 H POC VBG pCO2 28.4 L POC VBG pO2 69.2 H Mixed VBG HCO3 19.6 Sodium Potassium Chloride Carbon Dioxide Anion Gap BUN Creatinine Creat Clearance w eGFR Random Glucose Lactic Acid 2.0 Calcium Total Bilirubin AST ALT Alkaline Phosphatase Creatine Kinase Creatine Kinase Index CK-MB (CK-2) Troponin I B-Natriuretic Peptide Total Protein Albumin Urine Color Yellow Urine Appearance Clear Urine pH 7.0 Ur Specific Baldwin 1.010 Urine Protein Negative Urine Glucose (UA) Negative Urine Ketones 1+ H Urine Blood 1+ H Urine Nitrite Negative Urine Bilirubin Negative Urine Urobilinogen Negative Ur Leukocyte Esterase Negative Urine WBC (Auto) 1 Urine RBC (Auto) 10 08/30/18 08/30/18 18:55 16:40 PT with INR 13.30 H INR 1.13 H PTT (Actin FS) 30.2 VBG pH POC VBG pCO2 POC VBG pO2 Mixed VBG HCO3 Sodium 135 L Potassium 4.2 Chloride 102 Carbon Dioxide 21 Anion Gap 11 BUN 12 Creatinine 0.8 Creat Clearance w eGFR > 60 Random Glucose 102 Lactic Acid Calcium 8.7 Total Bilirubin 0.6 AST 33 ALT 24 Alkaline Phosphatase 92 Creatine Kinase 184 Creatine Kinase Index 1.0 CK-MB (CK-2) 1.9 Troponin I < 0.02 B-Natriuretic Peptide 1502.0 H Total Protein 8.2 Albumin 4.0 Urine Color Urine Appearance Urine pH Ur Specific Baldwin Urine Protein Urine Glucose (UA) Urine Ketones Urine Blood Urine Nitrite Urine Bilirubin Urine Urobilinogen Ur Leukocyte Esterase Urine WBC (Auto) Urine RBC (Auto) 08/30/18 16:40 RBC 4.29 MCV 89.7 MCHC 34.2 RDW 14.4 MPV 8.5 Neutrophils % 93.7 H D Lymphocytes % 2.1 L D Monocytes % 3.7 L Eosinophils % 0.1 Basophils % 0.4 - Medications Given in the ED: ED Medications Discontinued Medications Generic Name Dose Route Start Last Admin Trade Name Ya PRN Reason Stop Dose Admin Acetaminophen 1,000 mg 08/30/18 18:38 08/30/18 19:07 Ofirmev Injection - IVPB 08/30/18 18:39 1,000 mg ONCE ONE Administration Albuterol/Ipratropium 2 amp 08/30/18 16:49 08/30/18 17:12 Duoneb - NEB 08/30/18 16:50 2 amp ONCE ONE Administration Methylprednisolone Sodium Succinate 125 mg 08/30/18 16:49 08/30/18 17:15 Solu-Medrol - IVPUSH 08/30/18 16:50 125 mg ONCE ONE Administration <Mary Arellano - Last Filed: 08/30/18 22:09> - LABORATORY CBC & Chemistry Diagram: 08/30/18 16:40 08/30/18 16:40 <Tye Sharpe - Last Filed: 08/30/18 22:28> Medical Decision Making - Medical Decision Making 08/30/18 22:09 Name: VINCE LEWIS Sex: F Study Description: CT CTA CHEST Modality: CT Location: [facility] Referring Physician: DORON LUTZ COMPARISON: None FINDINGS: CARDIOVASCULAR: The heart is normal in size. There is no significant pericardial effusion. Atherosclerotic calcification of the aorta without aneurysm. Pulmonary embolism: No evidence of acute pulmonary embolism. LUNGS: Pulmonary venous congestion in a background of senescent interstitial lung disease with pleural parenchymal scarring in the lung apices as well as subsegmental atelectasis/ scarring of the right middle lobe and left lower lobe. The tracheobronchial tree is grossly patent. There is no pleural effusion or pneumothorax. LYMPH NODES: Mediastinal lymphadenopathy, likely reactive. UPPER ABDOMEN: Hepatic steatosis. BONES: No suspicious osseous abnormality. Mild to moderate degree of thoracic spondylosis. <Gianna Arellanoreen - Last Filed: 08/30/18 22:09> - Medical Decision Making 08/30/18 16:35 The patient is a 78 year old female with a history of HTN, COPD who presents for evaluation of chest pain and shortness of breath. Differential includes but is not limited to: ACS, COPD, Pneumonia, Infectious, Metabolic Derangement. Given the patient's history and physical exam, we will obtain a cbc, cmp, troponin, bnp, ekg, chest plain film to evaluate further. We will continue to monitor and reassess while here in the ED. <Tye Sharpe - Last Filed: 08/30/18 22:28> *DC/Admit/Observation/Transfer <Mary Arellano - Last Filed: 08/30/18 22:09> - Discharge Dispostion Decision to Admit order: Yes <Tye Sharpe - Last Filed: 08/30/18 22:28> Diagnosis at time of Disposition: SOB (shortness of breath) Chest pain Qualifiers: Chest pain type: unspecified Qualified Code(s): R07.9 - Chest pain, unspecified CAP (community acquired pneumonia) Qualifiers: Laterality: unspecified laterality Qualified Code(s): J18.9 - Pneumonia, unspecified organism - Discharge Dispostion Condition at time of disposition: Stable - Referrals Referrals: Cristopher Yousif MD [Primary Care Provider] - - Patient Instructions - Post Discharge Activity
--- NOTE | 2018-08-30 16:22 | PDOC ---
Attending Attestation - HPI HPI: 08/30/18 16:39 The patient is a 78 year old female with a PMH of HTN, COPD present with chest pain and shortness of breath for the past 2-3 days. Patient states the chest pain is substernal, intermittent, and achy in nature. She notes the shortness of breath is worse with exertion and admits to a non-productive cough. Patient is not currently following up with a document controller. Patient has not had a cardiology work up in the past. Patient denies fevers, chills, nausea, vomiting, abdominal pain, or changes with urination or bowel movements. Allergies: NKDA Surgeries: None reported. Social Hx: No reported alcohol, drug or cigarette use. PCP: Dr. Yousif <Abbie So - Last Filed: 08/30/18 16:39> - Resident Resident Name: Tye Sharpe - Physicial Exam PE: 08/30/18 17:31 Agree with resident exam. Patient as alert and and oriented, with normal mood and affect. Pulm: + crackles in the R base. Patient is tachpneic but is speaking in complete sentences without acessory muscle use. CV: RRR, mildly tachycardic, no murmur - Medical Decision Making 08/30/18 17:36 Pt presents to the ED complaining of chest pain and shortness of breath. Tachypneic and tachycardic on arrival to the ED. Differential diagnosis includes COPD exacerbation, PNA, CHF, ACS and PE. EKG shows NSR with no signs of ischemia. Will check labs and CT PE, and admit to medicine. Will treat with nebs and steroids. 08/30/18 17:40 <Mima Crews - Last Filed: 08/30/18 17:44>
[2018-08-30] MEDS ORDERED: methylPREDNISolone NA SUCC 125 MG/2 ML VIAL IVPUSH ONE (16:49)
[2018-08-30] MEDS ORDERED: ALBUTEROL SO4 2.5/IPRATROPIUM 0.5 INH SOL 3 ML VIAL.NEB. NEB ONE ×2 (16:49→17:14)
[2018-08-30 16:53] LABS: BASO % 0.4 % (0-2.0); EOS % 0.1 % (0-4.5); HEMATOCRIT 38.5 % (32.4-45.2); HEMOGLOBIN 13.2 GM/dL (10.7-15.3); LYMPH % 2.1 % (8-40); MCH 30.7 pg (25.7-33.7); MCHC 34.2 g/dl (32.0-36.0); MEAN CELL VOLUME 89.7 fl (80-96); MEAN PLT VOLUME 8.5 fl (7.5-11.1); MONO % 3.7 % (3.8-10.2); NEUT % 93.7 % (42.8-82.8); PLATELET COUNT 361 K/MM3 (134-434); RBC 4.29 M/mm3 (3.60-5.2); RDW 14.4 % (11.6-15.6); WHITE BLOOD COUNT 20.5 K/mm3 (4.0-10.0)
[2018-08-30] MEDS ORDERED: methylPREDNISolone NA SUCC 125 MG/2 ML VIAL ONE (17:15)
[2018-08-30 17:27] LABS: PLATELET ESTIMATE ADEQUATE
[2018-08-30 18:14] LABS: ALK PHOS 92 U/L (45-117); ANION GAP 11 MMOL/L (8-16); BILIRUBIN,TOTAL 0.6 mg/dL (0.2-1); BLOOD UREA NITROGEN 12 mg/dL (7-18); CALCIUM 8.7 mg/dL (8.5-10.1); CHLORIDE 102 mmol/L (98-107); CO2 21 mmol/L (21-32); CREATININE 0.8 mg/dL (0.55-1.3); GLUCOSE,RANDOM 102 mg/dL (74-106); POTASSIUM 4.2 mmol/L (3.5-5.1); SGOT/AST 33 U/L (15-37); SGPT/ALT 24 U/L (13-61); SODIUM 135 mmol/L (136-145); TOT PROT 8.2 g/dl (6.4-8.2)
[2018-08-30] MEDS ORDERED: ACETAMINOPHEN 1000 MG/100 ML VIAL (NON FORMULARY) IVPB ONE (18:38)
[2018-08-30] MEDS ORDERED: ACETAMINOPHEN INJECTION 100 ML IVPB ONE (18:51)
[2018-08-30 19:13] LABS: URINE APPEARANCE CLEAR; URINE BILIRUBIN NEGATIVE (<2.0 mg/dL); URINE COLOR YELLOW; URINE GLUCOSE (UA) NEGATIVE (NEGATIVE); URINE KETONE 1+ (NEGATIVE); URINE LEUK ESTERASE NEGATIVE (NEGATIVE); URINE NITRITE NEGATIVE (NEGATIVE); URINE PROTEIN NEGATIVE (NEGATIVE); URINE UROBILINOGEN NEGATIVE mg/dL (0.2-1.0)
[2018-08-30 19:15] LABS: VENOUS PC02 28.4 mmHg (38-52); VENOUS PH 7.45 (7.32-7.42); VENOUS PO2 69.2 mmHg (28-48)
[2018-08-30 19:25] LABS: INR 1.13 (0.83-1.09); PROTHROMBIN TIME (PATIENT) 13.3 SEC (9.7-13.0)
[2018-08-30 19:28] LABS: ACTIVATED PTT 30.2 SECONDS (25.2-36.5)
[2018-08-30] MEDS ORDERED: AZITHROMYCIN IVPB 500 MG in DEXTROSE 5%-WATER - 250 ML IVPB ONE (22:21)
[2018-08-30] MEDS ORDERED: CEFTRIAXONE 1 GM in DEXTROSE 5%-WATER - 100 ML IVPB ONE (22:21)
--- NOTE | 2018-08-30 22:31 | PN ---
Teaching Attending Note Name of Resident: Charles Porter ATTENDING PHYSICIAN STATEMENT I saw and evaluated the patient. I reviewed the resident's note and discussed the case with the resident. I agree with the resident's findings and plan as documented. SUBJECTIVE: Patient is a 78 year old woman with a history of HTN and COPD who presents for evaluation of chest pain and shortness of breath. The patient reports a 2-3 days history of worsening shortness of breath and intermittent achy substernal chest pain prompting her presentation to the ER for further evaluation. She notes that her shortness of breath worsens with exertion and reports a non- productive cough. She otherwise denies fevers, chills, nausea, vomiting, abdominal pain, or changes with urination or bowel movements. Currently being treated with Macrobid for UTI. OBJECTIVE: Alert Vital Signs Period Temp Pulse Resp BP Sys/Le Pulse Ox Last 24 Hr 98.1 F-100.3 F 94-107 16-20 148-198/54-76 95-96 HEENT: No Jaundice, eye redness or discharge, PERRLA, EOMI. Normocephalic, atraumatic. External ears are normal and impaired hearing. No nasal discharge. Neck: Supple, nontender. No palpable adenopathy or thyromegaly. No JVD Chest: Good effort. Bibasilar crackles R>L. Clear to percussion. Heart: Regular. No S3, rub or murmur Abdomen: Not distended, soft, nontender and no HSM. No rebound or guarding. Normoactive bowel sounds. Ext: Peripheral pulses intact. No leg edema. Skin: Warm and dry. No petechiae, rash or ecchymosis. Neuro: Alert. Oriented x3. CN 2-12 grossly intact. Sensation grossly intact in all four extremities and DTR are symmetric. Current Medications Generic Name Dose Route Start Last Admin Trade Name Freq PRN Reason Stop Dose Admin Azithromycin 500 mg/ Dextrose 250 mls @ 250 mls/hr 08/30/18 22:21 IVPB 08/30/18 23:20 ONCE ONE Ceftriaxone Sodium 1 gm/ 100 mls @ 200 mls/hr 08/30/18 22:21 Dextrose IVPB 08/30/18 22:50 ONCE ONE Protocol Home Medications Medication Instructions Recorded Anoro Ellipta 1 inh IH DAILY 08/30/18 Losartan Potassium [Cozaar -] 50 mg PO DAILY 08/30/18 Nitrofurantoin Macrocrystal 100 mg PO BID 08/30/18 [Nitrofurantoin] Abnormal Lab Results 08/30/18 08/30/18 08/30/18 16:40 16:40 18:55 WBC 20.5 H Absolute Neuts (auto) 19.2 H Neutrophils % 93.7 H D Neutrophils % (Manual) 93.0 H Lymphocytes % 2.1 L D Lymphocytes % (Manual) 3.0 L Monocytes % 3.7 L Monocytes % (Manual) 3 L PT with INR 13.30 H INR 1.13 H VBG pH POC VBG pCO2 POC VBG pO2 Sodium 135 L B-Natriuretic Peptide 1502.0 H Urine Ketones Urine Blood 08/30/18 08/30/18 18:55 18:55 WBC Absolute Neuts (auto) Neutrophils % Neutrophils % (Manual) Lymphocytes % Lymphocytes % (Manual) Monocytes % Monocytes % (Manual) PT with INR INR VBG pH 7.45 H POC VBG pCO2 28.4 L POC VBG pO2 69.2 H Sodium B-Natriuretic Peptide Urine Ketones 1+ H Urine Blood 1+ H ASSESSMENT AND PLAN: 1. Pneumonia and Chest pain - Chest pain is atypical. CXR shows congestive changes, bibasilar atelectasis and left upper lobe nodular density. CTA did not show any pulmonary embolism. EKG shows NSR with no significant ST-T wave changes. Troponin is negative. Will repeat EKG and troponin to rule out ACS. Get ECHO, fasting lipids, daily weight and restrict dietary salt intake.. May have early CHF - will give 20 mg IV lasix and monitor urine output. Further diuretic use should be based on ECHO findings and response to initial dose. Treat with rocephin and azithromycin for atypical pneumonia, solumedrol 60 mg q 8 hours, duoneb, symbicort and oxygen. Send urine for legionella antigen, stop macrobid. 2. DVT prophylaxis - Lovenox 40 mg SQ q 24 hours. 3. Advance directives - Full code 4. Hypertension - Restart home antihypertensive drugs to ultimately attain normotension. Nonpharmacologic measures to control hypertension like weight loss, salt restriction and exercise discussed.
[2018-08-30] MEDS ORDERED: AZITHROMYCIN IVPB 500 MG/250 ML BAG IVPB ONE (22:34)
[2018-08-30] MEDS ORDERED: CEFTRIAXONE 1 GM/50 ML BAG ONE (22:34)
[2018-08-30] MEDS ORDERED: ALBUTEROL SO4 2.5/IPRATROPIUM 0.5 INH SOL 3 ML VIAL.NEB. NEB PRN (23:55)
--- NOTE | 2018-08-30 23:58 | HP ---
CHIEF COMPLAINT: shortness of breath, chest pain PCP: Dr. Yousif Judo Teacher: Dr. Pepper HISTORY OF PRESENT ILLNESS: Patient is a 78 year old female with history of chronic bronchitis, hypertension , presents with complaint of shortness of breath with associated chest pain. States the shortness of breath has been ongoing for past two- three days, exacerbated with brisk walking and climbing stairs. She endorses intermittent exacerbations of shortness of breath; last episode was less than one week ago. States that the shortness of breath improved after receiving oxygen and nebulizer treatment in ED. Chest pain is described as constant, heavy, and pressure- like over midline of chest. Began approx. 14:00 with sudden onset while she was sitting in armchair reading a magazine. She denies prior occurrence of this chest pain. Chest pain was not exacerbation with deep breaths, or movement. Her shortness of breath was not worsened with chest pain. She denies palpitations associated with chest pain. She currently endorses that her chest discomfort has resolved. Denies fevers, chills. ER course was notable for: (1) Rocephin, Azithromycin, DuoNebs, Solu-Medrol (2) CTA chest negative for PE (3) EKG- normal sinus rhythm. Troponin 0.02 PAST MEDICAL HISTORY: chronic bronchitis, hypertension PAST SURGICAL HISTORY: denies Social History: Smoking: former smoker- smoked 2-3 cigarettes a day for approx. 2 years. Quit 62 years ago. 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 Family History: Mother: at 67 y/o. Esophageal cancer, CHF, Father: at 75 y/o. Liver cancer, ?intestinal cancer Brother: CABG X4 vessels Allergies denies food and medication allergies No Known Drug Allergies Allergy (Verified 08/30/18 15:50) HOME MEDICATIONS: Home Medications Medication Instructions Recorded Anoro Ellipta 1 inh IH DAILY 08/30/18 Losartan Potassium [Cozaar -] 50 mg PO DAILY 08/30/18 Nitrofurantoin Macrocrystal 100 mg PO BID 08/30/18 [Nitrofurantoin] REVIEW OF SYSTEMS CONSTITUTIONAL: Absent: fever, chills, diaphoresis, generalized weakness, malaise, loss of appetite, weight change HEENT: Absent: rhinorrhea, nasal congestion, throat pain, throat swelling, difficulty swallowing, mouth swelling, ear pain, eye pain, visual changes CARDIOVASCULAR: Admits: chest pain (resolved) Absent: syncope, palpitations, irregular heart rate, lightheadedness, peripheral edema RESPIRATORY: Admits: shortness of breath, cough, dyspnea with exertion. Absent: orthopnea, wheezing, stridor, hemoptysis GASTROINTESTINAL: Absent: abdominal pain, abdominal distension, nausea, vomiting, diarrhea, constipation, melena, hematochezia GENITOURINARY: Absent: dysuria, frequency, urgency, hesitancy, hematuria, flank pain, genital pain MUSCULOSKELETAL: Absent: myalgia, arthralgia, joint swelling, back pain, neck pain SKIN: Absent: rash, itching, pallor HEMATOLOGIC/IMMUNOLOGIC: Absent: easy bleeding, easy bruising, lymphadenopathy, frequent infections ENDOCRINE: Absent: unexplained weight gain, unexplained weight loss, heat intolerance, cold intolerance NEUROLOGIC: Absent: headache, focal weakness or paresthesias, dizziness, unsteady gait, seizure, mental status changes, bladder or bowel incontinence PSYCHIATRIC: Absent: anxiety, depression, suicidal or homicidal ideation, hallucinations. PHYSICAL EXAMINATION Vital Signs - 24 hr 08/30/18 08/30/18 08/30/18 15:44 18:41 20:35 Temperature 98.1 F 100.3 F H 98.4 F Pulse Rate 94 H Pulse Rate [ 107 H Apical] Respiratory 16 20 Rate Blood Pressure 198/76 H Blood Pressure 148/54 L [Left Arm] O2 Sat by Pulse 95 96 Oximetry (%) GENERAL: Pleasant female. Awake, alert, and fully oriented, in no acute distress. HEAD: Normocephalic, atraumatic. EYES: Pupils equal, round and reactive to light. Extraocular movements intact, sclera anicteric B/L. Conjunctiva clear without injection. EARS, NOSE, THROAT: Oropharynx clear without exudates. Moist mucous membranes. NECK: Supple without lymphadenopathy, or JVD LUNGS: Good inspiratory effort. Diminished air entry at right lower lobe. Crackles auscultated at B/L lower lung lobes. No dullness to percussion B/L. No accessory muscle use. HEART: Regular rate and rhythm, normal S1 and S2 without murmur, rub or gallop. ABDOMEN: Soft, nontender to light and deep palpation X4 quadrants. Not distended. Normoactive bowel sounds X4 quadrants. No guarding, no rebound tenderness. No hepatomegaly palpated or percussed. MUSCULOSKELETAL: Normal range of motion at all joints. No bony deformities or tenderness. Strength 5/5 B/L upper and lower extremities. UPPER EXTREMITIES: 2+ radial pulses B/L, warm, well-perfused. LOWER EXTREMITIES: 2+ dorsalis pedis pulses B/L, warm, well-perfused. No calf tenderness. No peripheral edema B/L lower extremities. NEUROLOGICAL: Cranial nerves II-XII intact. Normal speech. PSYCHIATRIC: Cooperative. Good eye contact. Appropriate mood and affect upon my encounter. SKIN: Warm, dry, normal turgor, no rashes or lesions noted. Laboratory Results - last 24 hr 08/30/18 08/30/18 08/30/18 16:40 16:40 18:55 WBC 20.5 H RBC 4.29 Hgb 13.2 Hct 38.5 MCV 89.7 MCH 30.7 MCHC 34.2 RDW 14.4 Plt Count 361 D MPV 8.5 Absolute Neuts (auto) 19.2 H Total Counted 100 Neutrophils % 93.7 H D Neutrophils % (Manual) 93.0 H Band Neutrophils % 1.0 Lymphocytes % 2.1 L D Lymphocytes % (Manual) 3.0 L Monocytes % 3.7 L Monocytes % (Manual) 3 L Eosinophils % 0.1 Basophils % 0.4 Nucleated RBC % 0 Differential Comment Man diff performed Platelet Estimate Adequate Platelet Comment PT with INR INR PTT (Actin FS) VBG pH POC VBG pCO2 POC VBG pO2 Mixed VBG HCO3 Sodium 135 L Potassium 4.2 Chloride 102 Carbon Dioxide 21 Anion Gap 11 BUN 12 Creatinine 0.8 Creat Clearance w eGFR > 60 Random Glucose 102 Lactic Acid Calcium 8.7 Total Bilirubin 0.6 AST 33 ALT 24 Alkaline Phosphatase 92 Creatine Kinase 184 Creatine Kinase Index 1.0 CK-MB (CK-2) 1.9 Troponin I < 0.02 B-Natriuretic Peptide 1502.0 H Total Protein 8.2 Albumin 4.0 Urine Color Urine Appearance Urine pH Ur Specific [place] Urine Protein Urine Glucose (UA) Urine Ketones Urine Blood Urine Nitrite Urine Bilirubin Urine Urobilinogen Ur Leukocyte Esterase Urine WBC (Auto) Urine RBC (Auto) Influenza A (Rapid) Negative Influenza B (Rapid) Negative 08/30/18 08/30/18 08/30/18 18:55 18:55 18:55 WBC RBC Hgb Hct MCV MCH MCHC RDW Plt Count MPV Absolute Neuts (auto) Total Counted Neutrophils % Neutrophils % (Manual) Band Neutrophils % Lymphocytes % Lymphocytes % (Manual) Monocytes % Monocytes % (Manual) Eosinophils % Basophils % Nucleated RBC % Differential Comment Platelet Estimate Platelet Comment PT with INR 13.30 H INR 1.13 H PTT (Actin FS) 30.2 VBG pH 7.45 H POC VBG pCO2 28.4 L POC VBG pO2 69.2 H Mixed VBG HCO3 19.6 Sodium Potassium Chloride Carbon Dioxide Anion Gap BUN Creatinine Creat Clearance w eGFR Random Glucose Lactic Acid Calcium Total Bilirubin AST ALT Alkaline Phosphatase Creatine Kinase Creatine Kinase Index CK-MB (CK-2) Troponin I B-Natriuretic Peptide Total Protein Albumin Urine Color Yellow Urine Appearance Clear Urine pH 7.0 Ur Specific [place] 1.010 Urine Protein Negative Urine Glucose (UA) Negative Urine Ketones 1+ H Urine Blood 1+ H Urine Nitrite Negative Urine Bilirubin Negative Urine Urobilinogen Negative Ur Leukocyte Esterase Negative Urine WBC (Auto) 1 Urine RBC (Auto) 10 Influenza A (Rapid) Influenza B (Rapid) 08/30/18 18:55 WBC RBC Hgb Hct MCV MCH MCHC RDW Plt Count MPV Absolute Neuts (auto) Total Counted Neutrophils % Neutrophils % (Manual) Band Neutrophils % Lymphocytes % Lymphocytes % (Manual) Monocytes % Monocytes % (Manual) Eosinophils % Basophils % Nucleated RBC % Differential Comment Platelet Estimate Platelet Comment PT with INR INR PTT (Actin FS) VBG pH POC VBG pCO2 POC VBG pO2 Mixed VBG HCO3 Sodium Potassium Chloride Carbon Dioxide Anion Gap BUN Creatinine Creat Clearance w eGFR Random Glucose Lactic Acid 2.0 Calcium Total Bilirubin AST ALT Alkaline Phosphatase Creatine Kinase Creatine Kinase Index CK-MB (CK-2) Troponin I B-Natriuretic Peptide Total Protein Albumin Urine Color Urine Appearance Urine pH Ur Specific [place] Urine Protein Urine Glucose (UA) Urine Ketones Urine Blood Urine Nitrite Urine Bilirubin Urine Urobilinogen Ur Leukocyte Esterase Urine WBC (Auto) Urine RBC (Auto) Influenza A (Rapid) Influenza B (Rapid) ASSESSMENT/PLAN: Patient is a 78 year old female with history of chronic bronchitis, hypertension , presents with complaint of shortness of breath with associated chest pain. Shortness of breath -Likely secondary to bronchitis exacerbation secondary to pneumonia -Chest Xray shows congestive changes with bibasilar atelectasis. Left upper lobe nodular density noted. -CTA chest negative for PE. Pulmonary venous congestion, pleural parenchymal scarring in the lung apices, subsegmental atelectasis/ scarring of the right middle lobe and left lower lobe. -Rocephin 1 gram IV daily -Azithromycin 500mg IV daily -Duonebs 1amp Q4H -Solu-Medrol 60mg IV Q8H -Symbicort 80/4.5 2 puffs BID -Lasix 20mg IV X1 dose. Monitor urine output closely. -Pulmonology consult (Dr. Pepper) -F/U urine for legionella, pneumonia -F/U influenza, RSV swab -F/U blood cultures Atypical chest pain -Unclear etiology. May be musculoskeletal as patient has increased work of breathing due to shortness of breath and coughing. -EKG shows normal sinus rhythm without ischemic changes. -Troponin negative at 0.02. Follow troponins -Telemetry monitoring -F/U cardiac ECHO -F/U fasting lipid panel -Consider cardiology consult, pending ECHO Urinary tract infection -Patient has completed 5 days of Macrobid prior to hospital admission. -Patient is receiving Ceftriaxone. Can stop Macrobid. -UA shows 1+ ketones, 1+ blood, 1WBC, 10RBC. Hypertension -Losartan 50mg PO daily FEN -No IV fluids indicated -Within normal limits. Follow CMP -Sodium restricted diet Prophylaxis -Lovenox 40mg subq daily Disposition -Observe in Telemetry floor. Visit type - Emergency Visit Emergency Visit: Yes ED Registration Date: 08/30/18 Care time: The patient presented to the Emergency Department on the above date and was hospitalized for further evaluation of their emergent condition. - New Patient This patient is new to me today: Yes Date on this admission: 08/31/18 - Critical Care Critical Care patient: No
[2018-08-31] MEDS ORDERED: methylPREDNISolone NA SUCC 125 MG/2 ML VIAL IVPUSH SCH (00:30)
[2018-08-31] MEDS ORDERED: FUROSEMIDE 40 MG/4 ML INJECTABLE VIAL IVPUSH ONE (00:34)
[2018-08-31] MEDS ORDERED: methylPREDNISolone NA SUCC 40 MG/1 ML VIAL ONE (01:03)
[2018-08-31] MEDS ORDERED: FUROSEMIDE 40 MG/4 ML INJECTABLE VIAL ONE (01:04)
[2018-08-31] MEDS: BUDESONIDE/FORMETEROL FUMARATE 80/4.5 mcg INHALER IH SCH ×3 (03:20→22:41)
[2018-08-31 06:27] LABS: HEMATOCRIT 39.2 % (32.4-45.2); HEMOGLOBIN 12.6 GM/dL (10.7-15.3); MCH 29.2 pg (25.7-33.7); MCHC 32.2 g/dl (32.0-36.0); MEAN CELL VOLUME 90.8 fl (80-96); MEAN PLT VOLUME 8.8 fl (7.5-11.1); PLATELET COUNT 298 K/MM3 (134-434); RBC 4.32 M/mm3 (3.60-5.2); RDW 14.7 % (11.6-15.6); WHITE BLOOD COUNT 17.5 K/mm3 (4.0-10.0)
[2018-08-31 06:51] LABS: ALBUMIN 3.6 g/dl (3.4-5.0); ALK PHOS 86 U/L (45-117); ANION GAP 11 MMOL/L (8-16); BILIRUBIN,TOTAL 0.4 mg/dL (0.2-1); BLOOD UREA NITROGEN 16 mg/dL (7-18); CALCIUM 8.6 mg/dL (8.5-10.1); CHLORIDE 101 mmol/L (98-107); CHOLESTEROL 175 mg/dL (50-200); CO2 24 mmol/L (21-32); CREATININE 0.9 mg/dL (0.55-1.3); GLUCOSE,RANDOM 241 mg/dL (74-106); HDL CHOLESTEROL 92 mg/dL (40-60); MAGNESIUM 2.1 mg/dL (1.8-2.4); PHOSPHOROUS 3.5 mg/dL (2.5-4.9); POTASSIUM 3.4 mmol/L (3.5-5.1); SGOT/AST 15 U/L (15-37); SGPT/ALT 19 U/L (13-61); SODIUM 136 mmol/L (136-145); TOT PROT 7.8 g/dl (6.4-8.2); TRIGLYCERIDES 31 mg/dL (0-150)
[2018-08-31] MEDS ORDERED: methylPREDNISolone NA SUCC 40 MG/1 ML VIAL IVPUSH SCH (10:00)
[2018-08-31] MEDS ORDERED: CEFTRIAXONE 1 GM in DEXTROSE 5%-WATER - 50 ML IVPB SCH (10:00)
[2018-08-31] MEDS ORDERED: AZITHROMYCIN IVPB 500 MG/250 ML BAG IVPB SCH (10:00)
[2018-08-31] MEDS ORDERED: ANORO ELLIPTA IH SCH (10:00)
[2018-08-31] MEDS ORDERED: AZITHROMYCIN IVPB 500 MG/250 ML BAG IVPB ONE (10:42)
[2018-08-31] MEDS ORDERED: CEFTRIAXONE 1 GM/50 ML BAG ONE (10:43)
--- NOTE | 2018-08-31 10:49 | PN ---
Progress Note, Physician - Current Medication List Current Medications: Active Medications Albuterol/Ipratropium (Duoneb -) 1 amp NEB Q4H PRN PRN Reason: SHORTNESS OF BREATH Budesonide/Formoterol Fumarate (Symbicort 80/4.5mcg -) 2 puff IH BID [facility] Last Admin: 08/31/18 03:20 Dose: 2 puff Enoxaparin Sodium (Lovenox -) 40 mg SQ DAILY [facility] Ceftriaxone Sodium 1 gm/ (Dextrose) 50 mls @ 100 mls/hr IVPB DAILY [facility]; Protocol Azithromycin (Zithromax 500mg Ivpb (Pre-Docked)) 500 mg in 250 mls @ 250 mls/ hr IVPB DAILY [facility] Losartan Potassium (Cozaar -) 50 mg PO DAILY [facility] Methylprednisolone Sodium Succinate (Solu-Medrol -) 60 mg IVPUSH Q8H-IV [facility] - Objective Vital Signs: Vital Signs Temperature 97.6 F 08/31/18 05:30 Pulse Rate 85 08/31/18 05:30 Respiratory Rate 18 08/31/18 05:30 Blood Pressure 128/64 08/31/18 05:30 O2 Sat by Pulse Oximetry (%) 96 08/31/18 05:30 Labs: CBC, BMP 08/31/18 05:30 08/31/18 05:30 INR, PTT INR 1.13 (0.83-1.09) H 08/30/18 18:55 Problem List - Problems (1) CAP (community acquired pneumonia) Assessment/Plan: d/c ceftriaxone d/c azithromycin start the patient on Levofloxacin 750mg daily c/ nebulization d/c furosemide obtain echocardiogram if the EF is decrease consult cardiology Code(s): J18.9 - PNEUMONIA, UNSPECIFIED ORGANISM (2) Chronic bronchitis Assessment/Plan: stable no acute wheezing at this time will continue levofloxacin consult pulmonary for evaluation d/c solumedrol start prednisone 40mg daily start the patient on ranitidine for GI prophylaxis Code(s): J42 - UNSPECIFIED CHRONIC BRONCHITIS (3) Hypertension Assessment/Plan: c/w losartan 50mg daily Code(s): I10 - ESSENTIAL (PRIMARY) HYPERTENSION
[2018-08-31] MEDS: LOSARTAN POTASSIUM 50 MG TABLET (FP) PO SCH (10:50)
[2018-08-31] MEDS: ENOXAPARIN NA (PORCINE) 40 MG/0.4 ML DISP.SYRIN SQ SCH (10:50)
[2018-08-31] MEDS ORDERED: RANITIDINE HCL 150 MG TABLET (FP) PO ONE (10:54)
[2018-08-31] MEDS: predniSONE 20 MG TABLET (UD) PO SCH (11:19)
[2018-08-31] MEDS ORDERED: RANITIDINE HCL 150 MG TABLET (FP) ONE (12:18)
--- NOTE | 2018-08-31 14:54 | CON.PULM ---
Consult Consult Specialty:: PULM/CCM Referred by:: Hospitalist Reason for Consultation:: PNA - History of Present Illness Chief Complaint: SOB / CP History of Present Illness: 78 F, HTN, Obstructive Lung Disease on PFTs (life long non-smoker), and NELI based on bronchial washings S/P Bronchoscopy in 2011. Patient was seen by Dr Roberts of ID and the decision was made to not treat her NELI. Admitted via the ER due to chest pain and shortness of breath. She reports a day day history of progressive congested cough and BHATIA. No hemoptysis. No night sweats. No subjective weight loss. Of note she is on Macrobid for UTI. - History Source History Provided By: Patient Limitations to Obtaining History: No Limitations - Past Medical History Pulmonary: Yes: Bronchitis, COPD, Pneumonia, Other (NELI ). No: Asthma, Cancer , Previously Intubated, Pulmonary Embolus, Pulmonary Fibrosis, Sleep Apnea - Alcohol/Substance Use Hx Alcohol Use: No - Smoking History Smoking history: Never smoked Have you smoked in the past 12 months: No If you are a former smoker, when did you quit?: 1954 Home Medications - Allergies Allergies/Adverse Reactions: Allergies Allergy/AdvReac Type Severity Reaction Status Date / Time No Known Drug Allergies Allergy Verified 08/30/18 15:50 - Home Medications Home Medications: Ambulatory Orders Anoro Ellipta 1 inh IH DAILY 08/30/18 Losartan Potassium [Cozaar -] 50 mg PO DAILY 08/30/18 Nitrofurantoin Macrocrystal [Nitrofurantoin] 100 mg PO BID 08/30/18 Review of Systems - Review of Systems Constitutional: denies: Chills, Fever, Loss of Appetite, Night Sweats, Unintentional Wgt. Loss Eyes: reports: No Symptoms HENT: reports: No Symptoms Neck: reports: No Symptoms Cardiovascular: reports: Chest Pain. denies: Edema, Palpitations, Shortness of Breath Respiratory: reports: Cough, SOB, SOB on Exertion. denies: Hemoptysis, Orthopnea, Snoring, Wheezing Gastrointestinal: reports: No Symptoms Genitourinary: reports: No Symptoms Breasts: reports: No Symptoms Reported Musculoskeletal: reports: No Symptoms Integumentary: reports: No Symptoms Neurological: reports: No Symptoms Endocrine: reports: No Symptoms Hematology/Lymphatic: reports: No Symptoms Psychiatric: reports: No Symptoms Physical Exam Vital Sings: Vital Signs Temperature 97.6 F 08/31/18 05:30 Pulse Rate 69 08/31/18 10:00 Respiratory Rate 16 08/31/18 10:00 Blood Pressure 171/66 H 08/31/18 10:00 O2 Sat by Pulse Oximetry (%) 98 08/31/18 10:00 Constitutional: Yes: No Distress, Calm, Thin Eyes: Yes: Conjunctiva Clear, EOM Intact HENT: Yes: Atraumatic, Normocephalic Neck: Yes: Supple, Trachea Midline Cardiovascular: Yes: Regular Rate and Rhythm Respiratory: Yes: Cough, Diminished, Rhonchi, SOB on Exertion. No: Accessory Muscle Use, Rales, SOB, Stridor, Tachypnea, Wheezes ...Inspection: Yes: WNL ...Clubbing: No Gastrointestinal: Yes: Normal Bowel Sounds, Soft Renal/: Yes: WNL Musculoskeletal: Yes: WNL Extremities: Yes: WNL Edema: No Peripheral Pulses WNL: Yes Integumentary: Yes: WNL Neurological: Yes: WNL, Alert, Oriented ...Motor Strength: WNL Psychiatric: Yes: WNL, Alert, Oriented Labs: CBC, BMP 08/31/18 05:30 08/31/18 05:30 Imaging - Results Chest X-ray: Report Reviewed, Image Reviewed Cat Scan: Report Reviewed, Image Reviewed Problem List - Problems (1) COPD (chronic obstructive pulmonary disease) Code(s): J44.9 - CHRONIC OBSTRUCTIVE PULMONARY DISEASE, UNSPECIFIED (2) Atypical mycobacterial infection of lung Code(s): A31.0 - PULMONARY MYCOBACTERIAL INFECTION (3) CAP (community acquired pneumonia) Code(s): J18.9 - PNEUMONIA, UNSPECIFIED ORGANISM (4) Chronic bronchitis Code(s): J42 - UNSPECIFIED CHRONIC BRONCHITIS (5) Hypertension Code(s): I10 - ESSENTIAL (PRIMARY) HYPERTENSION Assessment/Plan Levaquin daily Sputum culture Urine antigen O2 as needed BD TX Prednisone OD ID evaluation VTE prophylaxis Thank you. Dr Pepper
[2018-08-31] MEDS ORDERED: ALBUTEROL SO4 0.083% IH SOL 2.5 MG/3 ML VIAL.NEB. NEB PRN (15:00)
--- NOTE | 2018-08-31 16:29 | EKG ---
Test Reason : Blood Pressure : / mmHG Vent. Rate : 072 BPM Atrial Rate : 072 BPM P-R Int : 156 ms QRS Dur : 086 ms QT Int : 436 ms P-R-T Axes : 053 -02 014 degrees QTc Int : 477 ms SINUS RHYTHM WITH OCCASIONAL PREMATURE VENTRICULAR COMPLEXES OTHERWISE NORMAL ECG Confirmed by MD FABY, CELESTE ([id number]) on 08/31/2018 4:28:45 PM Referred By: Kunal WILSON Confirmed By:CELESTE HOBBS MD
--- NOTE | 2018-08-31 16:48 | EKG ---
Test Reason : Blood Pressure : / mmHG Vent. Rate : 088 BPM Atrial Rate : 088 BPM P-R Int : 134 ms QRS Dur : 084 ms QT Int : 370 ms P-R-T Axes : 051 011 050 degrees QTc Int : 447 ms NORMAL SINUS RHYTHM NORMAL ECG WHEN COMPARED WITH ECG OF 22-OCT-2016 15:19, NONSPECIFIC T WAVE ABNORMALITY, IMPROVED IN LATERAL LEADS Confirmed by MD FABY, CELESTE ([id number]) on 08/31/2018 4:47:45 PM Referred By: Confirmed By:CELESTE HOBBS MD
[2018-08-31] MEDS ORDERED: ALBUTEROL SO4 2.5/IPRATROPIUM 0.5 INH SOL 3 ML VIAL.NEB. NEB ONE (20:31)
[2018-08-31] MEDS: ALBUTEROL SO4 2.5/IPRATROPIUM 0.5 INH SOL 3 ML VIAL.NEB. NEB SCH (20:50)
[2018-09-01 06:30] LABS: BASO % 0.2 % (0-2.0); HEMATOCRIT 36.5 % (32.4-45.2); HEMOGLOBIN 12.6 GM/dL (10.7-15.3); LYMPH % 6.4 % (8-40); MCH 31.4 pg (25.7-33.7); MCHC 34.5 g/dl (32.0-36.0); MEAN CELL VOLUME 90.8 fl (80-96); MEAN PLT VOLUME 9.2 fl (7.5-11.1); MONO % 6.1 % (3.8-10.2); NEUT % 87.3 % (42.8-82.8); PLATELET COUNT 327 K/MM3 (134-434); RBC 4.02 M/mm3 (3.60-5.2); RDW 14.9 % (11.6-15.6); WHITE BLOOD COUNT 17.6 K/mm3 (4.0-10.0)
[2018-09-01 07:13] LABS: ALBUMIN 3.4 g/dl (3.4-5.0); ALK PHOS 79 U/L (45-117); ANION GAP 7 MMOL/L (8-16); BILIRUBIN,TOTAL 0.2 mg/dL (0.2-1); BLOOD UREA NITROGEN 27 mg/dL (7-18); CALCIUM 8.2 mg/dL (8.5-10.1); CHLORIDE 104 mmol/L (98-107); CO2 27 mmol/L (21-32); CREATININE 0.8 mg/dL (0.55-1.3); GLUCOSE,RANDOM 86 mg/dL (74-106); MAGNESIUM 2.4 mg/dL (1.8-2.4); PHOSPHOROUS 3.6 mg/dL (2.5-4.9); POTASSIUM 3.3 mmol/L (3.5-5.1); SGOT/AST 18 U/L (15-37); SGPT/ALT 19 U/L (13-61); SODIUM 138 mmol/L (136-145); TOT PROT 7.4 g/dl (6.4-8.2)
[2018-09-01] MEDS ORDERED: predniSONE 20 MG TABLET (UD) ONE (09:35)
[2018-09-01] MEDS ORDERED: POTASSIUM CHLORIDE ORAL LIQUID 20 MEQ/15 ML ONE (09:36)
[2018-09-01] MEDS ORDERED: CEFTRIAXONE 2 GM/100 ML BAG IVPB ONE (09:36)
[2018-09-01] MEDS ORDERED: ENOXAPARIN NA (PORCINE) 40 MG/0.4 ML DISP.SYRIN SQ ONE (09:36)
[2018-09-01] MEDS: predniSONE 20 MG TABLET (UD) PO SCH (09:55)
[2018-09-01] MEDS: POTASSIUM CHLORIDE ORAL LIQUID 20 MEQ/15 ML PO SCH ×2 (09:55→21:36)
[2018-09-01] MEDS: CEFTRIAXONE 2 GM in DEXTROSE 5%-WATER 100 ML IVPB SCH (09:55)
[2018-09-01] MEDS: ENOXAPARIN NA (PORCINE) 40 MG/0.4 ML DISP.SYRIN SQ SCH (09:55)
[2018-09-01] MEDS ORDERED: levoFLOXacin 750 MG TABLET PO SCH (10:00)
--- NOTE | 2018-09-01 10:32 | PN ---
Progress Note (short form) - Note Progress Note: ID consult dictated imp/reccd pneumonia copd continue rocephin, po doxy f/u urinary antigens hopefully home in am on po ceftin Problem List - Problems (1) CAP (community acquired pneumonia) Code(s): J18.9 - PNEUMONIA, UNSPECIFIED ORGANISM (2) COPD exacerbation Code(s): J44.1 - CHRONIC OBSTRUCTIVE PULMONARY DISEASE W (ACUTE) EXACERBATION
--- NOTE | 2018-09-01 11:00 | PN ---
Progress Note, Physician Chief Complaint: Pt sitting in stretcher in no acute distress. Reports feeling well. Denies any chest pain, sob, n/v/d - Current Medication List Current Medications: Active Medications Albuterol Sulfate (Ventolin 0.083% Nebulizer Soln -) 1 amp NEB Q4H PRN PRN Reason: SHORT OF BREATH/WHEEZING Albuterol/Ipratropium (Duoneb -) 1 amp NEB RTID [facility] Last Admin: 08/31/18 20:50 Dose: 1 amp Budesonide/Formoterol Fumarate (Symbicort 80/4.5mcg -) 2 puff IH BID [facility] Last Admin: 08/31/18 22:41 Dose: 2 puff Doxycycline Hyclate (Vibramycin -) 100 mg PO BID@1000,1800 [facility] Enoxaparin Sodium (Lovenox -) 40 mg SQ DAILY [facility] Last Admin: 09/01/18 09:55 Dose: 40 mg Ceftriaxone Sodium 2 gm/ (Dextrose) 100 mls @ 200 mls/hr IVPB DAILY [facility]; Protocol Last Admin: 09/01/18 09:55 Dose: 200 mls/hr Losartan Potassium (Cozaar -) 50 mg PO DAILY [facility] Last Admin: 08/31/18 10:50 Dose: 50 mg Potassium Chloride (Potassium Chloride Oral Liquid) 40 meq PO BID [facility] Last Admin: 09/01/18 09:55 Dose: 40 meq Prednisone (Deltasone -) 40 mg PO DAILY [facility] Last Admin: 09/01/18 09:55 Dose: 40 mg - Objective Vital Signs: Vital Signs Temperature 98.4 F 09/01/18 10:00 Pulse Rate 69 09/01/18 10:00 Respiratory Rate 18 09/01/18 10:00 Blood Pressure 167/76 09/01/18 10:00 O2 Sat by Pulse Oximetry (%) 100 09/01/18 06:30 Constitutional: Yes: Well Nourished, No Distress, Calm Cardiovascular: Yes: WNL, Regular Rate and Rhythm. No: Murmur Respiratory: Yes: WNL, Regular, Cough, Diminished. No: Accessory Muscle Use, SOB, Tachypnea, Wheezes Gastrointestinal: Yes: WNL, Normal Bowel Sounds, Soft. No: Distention, Tenderness Genitourinary: Yes: WNL Extremities: Yes: WNL Edema: No Neurological: Yes: WNL, Alert, Oriented Psychiatric: Yes: WNL, Alert, Oriented Labs: CBC, BMP 09/01/18 05:00 09/01/18 06:00 INR, PTT INR 1.13 (0.83-1.09) H 08/30/18 18:55 Problem List - Problems (1) SOB (shortness of breath) Assessment/Plan: resolved cardiac echo without acute findings trop x3 neg cta- neg for pe suspect 2/2 pna Code(s): R06.02 - SHORTNESS OF BREATH (2) CAP (community acquired pneumonia) Assessment/Plan: as above on ceftriazone, doxy wbc count 20k on admission unreliable as pt received steroids urine legionella/blood cultures neg ID following Code(s): J18.9 - PNEUMONIA, UNSPECIFIED ORGANISM Qualifiers: Laterality: right Lung location: middle lobe of lung Qualified Code(s): J18.1 - Lobar pneumonia, unspecified organism (3) Hypertension Assessment/Plan: varies intermittently elevated here continue losartan will avoid further additions inpt outpt follow up Code(s): I10 - ESSENTIAL (PRIMARY) HYPERTENSION Qualifiers: Hypertension type: essential hypertension Qualified Code(s): I10 - Essential (primary) hypertension (4) COPD (chronic obstructive pulmonary disease) Assessment/Plan: chronic continue nebs/prednisone pulm following Code(s): J44.9 - CHRONIC OBSTRUCTIVE PULMONARY DISEASE, UNSPECIFIED Qualifiers: COPD type: chronic bronchitis (5) Hypokalemia Assessment/Plan: k level 3.3 this am kcl 40meq bid monitor bmp Code(s): E87.6 - HYPOKALEMIA Assessment/Plan Dispo: Home when cleared by ID
--- NOTE | 2018-09-01 11:27 | CONS ---
DATE OF CONSULTATION: REQUESTING PHYSICIAN: Hospitalist service DATE OF DICTATION: 09/01/2018 HISTORY: This is a 78-year-old woman with a history of chronic lung disease, bronchitis, hypertension. She is maintained on an inhaler as an outpatient. She presented on the with complaints of shortness of breath for the last 48 hours with sudden onset of chest pain. She denied any fevers or chills and, otherwise, felt well. She received Rocephin, Zithromax, DuoNeb, and Solu-Medrol. She had a CAT scan that was negative for PE in the ER. Of note, the CAT scan revealed atelectasis and cystic changes in the right middle lobe as well as left lung base. Cannot rule out pneumonia. I am asked to see her for further management. Of note, she reports that in 2011 she had a bronchoscopy. At that time, she was seen by one of my associates, Dr. Roberts. Sputum grew MAC in the bronchoscopy specimen only, and the decision was made not to treat her for atypical mycobacterial disease. She has been doing well since that time on an inhaler. She denies any hemoptysis. She denies any weight loss, fevers, or chills. Her PMD is Dr. Yousif, and her hook and eye attacher is Dr. Pepper. PAST MEDICAL HISTORY: Notable for chronic bronchitis. She had an admission last year for pneumonia and hypertension. She is up to date on her vaccines. She got Prevnar last year in 2017 and influenza this year. PAST SURGICAL HISTORY: Negative. SOCIAL HISTORY: She is a former smoker. She quit 60 years ago. She drinks alcohol socially. No history of illicit drug use. 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 She is a sister. FAMILY HISTORY: Notable for esophageal cancer and heart failure in her mother and liver cancer in her father. ALLERGIES: She has no known drug allergies. MEDICATIONS: Include Anoro, which is an inhaler, losartan, and nitrofurantoin. REVIEW OF SYSTEMS: Notable for the chest pain that has resolved and her cough, which is improving. PHYSICAL EXAMINATION: General: She is a pleasant woman in no acute distress. Vital Signs: Current temperature 97.9, T-max 100.3, pulse 70, blood pressure 174/78, respiratory rate 16. She is saturating 100% on 2 L. HEENT: She is normocephalic. Her eyes are anicteric. Neck: Supple. Lungs: Diminished breath sounds at the bases. Heart: Regular rate and rhythm. Abdomen: Soft, nontender. Extremities: Without edema. DIAGNOSTIC DATA: White count on admission was 20.5, today is 17.6, hemoglobin 12.6, platelets 327, BUN 27, creatinine 0.8. LFTs are normal. RSV and influenza screens were negative. Cultures are negative after 24 hours. Legionella and pneumococcal urinary antigens are pending. In summary, this is a 78-year-old woman with COPD who has evidence of community-acquired pneumonia who I would continue with ceftriaxone and switch to oral doxycycline at this time. Would follow up urinary antigens. She continues to improve. Would consider switching her to oral Ceftin in the morning for discharge and follow up as an outpatient. Further recommendations to follow. KAMILLE HANEY M.D. [id number]
[2018-09-01] MEDS: LOSARTAN POTASSIUM 50 MG TABLET (FP) PO SCH (13:50)
--- NOTE | 2018-09-01 15:15 | PN ---
Progress Note (short form) - Note Progress Note: Feels overall better today. Less cough and SOB. No hemoptysis. Intake & Output 08/29/18 08/30/18 08/31/18 09/01/18 23:59 23:59 23:59 23:59 Weight 138 lb Last Vital Signs Temp Pulse Resp BP Pulse Ox 98.5 F 78 18 178/76 H 100 09/01/18 13:57 09/01/18 13:57 09/01/18 13:57 09/01/18 13:57 09/01/18 10:00 Active Medications Albuterol Sulfate (Ventolin 0.083% Nebulizer Soln -) 1 amp NEB Q4H PRN PRN Reason: SHORT OF BREATH/WHEEZING Albuterol/Ipratropium (Duoneb -) 1 amp NEB RTID [facility] Last Admin: 08/31/18 20:50 Dose: 1 amp Budesonide/Formoterol Fumarate (Symbicort 80/4.5mcg -) 2 puff IH BID [facility] Last Admin: 08/31/18 22:41 Dose: 2 puff Doxycycline Hyclate (Vibramycin -) 100 mg PO BID@1000,1800 [facility] Enoxaparin Sodium (Lovenox -) 40 mg SQ DAILY [facility] Last Admin: 09/01/18 09:55 Dose: 40 mg Ceftriaxone Sodium 2 gm/ (Dextrose) 100 mls @ 200 mls/hr IVPB DAILY [facility]; Protocol Last Admin: 09/01/18 09:55 Dose: 200 mls/hr Losartan Potassium (Cozaar -) 50 mg PO DAILY [facility] Last Admin: 09/01/18 13:50 Dose: 50 mg Potassium Chloride (Potassium Chloride Oral Liquid) 40 meq PO BID [facility] Last Admin: 09/01/18 09:55 Dose: 40 meq Prednisone (Deltasone -) 40 mg PO DAILY [facility] Last Admin: 09/01/18 09:55 Dose: 40 mg Constitutional: Yes: No Distress, Calm, Thin Eyes: Yes: Conjunctiva Clear, EOM Intact HENT: Yes: Atraumatic, Normocephalic Neck: Yes: Supple, Trachea Midline Cardiovascular: Yes: Regular Rate and Rhythm Respiratory: Yes: Cough, Diminished, Rhonchi. No: Accessory Muscle Use, Rales, SOB, Stridor, Tachypnea, Wheezes ...Inspection: Yes: WNL ...Clubbing: No Gastrointestinal: Yes: Normal Bowel Sounds, Soft Renal/: Yes: WNL Musculoskeletal: Yes: WNL Extremities: Yes: WNL Edema: No Peripheral Pulses WNL: Yes Integumentary: Yes: WNL Neurological: Yes: WNL, Alert, Oriented ...Motor Strength: WNL Psychiatric: Yes: WNL, Alert, Oriented Labs: Laboratory Results - last 24 hr 09/01/18 09/01/18 05:00 06:00 WBC 17.6 H RBC 4.02 Hgb 12.6 Hct 36.5 MCV 90.8 MCH 31.4 MCHC 34.5 RDW 14.9 Plt Count 327 MPV 9.2 Absolute Neuts (auto) 15.4 H Neutrophils % 87.3 H Lymphocytes % 6.4 L D Monocytes % 6.1 Eosinophils % 0.0 D Basophils % 0.2 Nucleated RBC % 0 Sodium 138 Potassium 3.3 L Chloride 104 Carbon Dioxide 27 Anion Gap 7 L BUN 27 H Creatinine 0.8 Creat Clearance w eGFR > 60 Random Glucose 86 Calcium 8.2 L Phosphorus 3.6 Magnesium 2.4 Total Bilirubin 0.2 AST 18 ALT 19 Alkaline Phosphatase 79 Total Protein 7.4 Albumin 3.4 Problem List - Problems (1) COPD (chronic obstructive pulmonary disease) Code(s): J44.9 - CHRONIC OBSTRUCTIVE PULMONARY DISEASE, UNSPECIFIED (2) Atypical mycobacterial infection of lung Code(s): A31.0 - PULMONARY MYCOBACTERIAL INFECTION (3) CAP (community acquired pneumonia) Code(s): J18.9 - PNEUMONIA, UNSPECIFIED ORGANISM (4) Chronic bronchitis Code(s): J42 - UNSPECIFIED CHRONIC BRONCHITIS (5) Hypertension Code(s): I10 - ESSENTIAL (PRIMARY) HYPERTENSION Assessment/Plan ABX per ID O2 as needed BD TX Prednisone OD VTE prophylaxis Noted potassium supplementation ordered Dr Pepper Problem List - Problems (1) COPD (chronic obstructive pulmonary disease) Code(s): J44.9 - CHRONIC OBSTRUCTIVE PULMONARY DISEASE, UNSPECIFIED Qualifiers: COPD type: chronic bronchitis (2) Atypical mycobacterial infection of lung Code(s): A31.0 - PULMONARY MYCOBACTERIAL INFECTION (3) CAP (community acquired pneumonia) Code(s): J18.9 - PNEUMONIA, UNSPECIFIED ORGANISM Qualifiers: Laterality: right Lung location: middle lobe of lung Qualified Code(s): J18.1 - Lobar pneumonia, unspecified organism (4) Chronic bronchitis Code(s): J42 - UNSPECIFIED CHRONIC BRONCHITIS (5) Hypertension Code(s): I10 - ESSENTIAL (PRIMARY) HYPERTENSION Qualifiers: Hypertension type: essential hypertension Qualified Code(s): I10 - Essential (primary) hypertension
[2018-09-01] MEDS: ALBUTEROL SO4 2.5/IPRATROPIUM 0.5 INH SOL 3 ML VIAL.NEB. NEB SCH ×2 (15:52→19:54)
[2018-09-01] MEDS ORDERED: PT OWN MED DRAWER 7, Y5N ONE (16:38)
[2018-09-01] MEDS: BUDESONIDE/FORMETEROL FUMARATE 80/4.5 mcg INHALER IH SCH ×2 (16:39→21:37)
[2018-09-01] MEDS: DOXYCYCLINE HYCLATE 100 MG CAPSULE PO SCH (17:58)
[2018-09-02 06:54] LABS: BASO % 0.6 % (0-2.0); EOS % 0.3 % (0-4.5); HEMOGLOBIN 11.3 GM/dL (10.7-15.3); LYMPH % 21.4 % (8-40); MCH 29.6 pg (25.7-33.7); MCHC 32.3 g/dl (32.0-36.0); MEAN CELL VOLUME 91.5 fl (80-96); MEAN PLT VOLUME 9.1 fl (7.5-11.1); MONO % 8.6 % (3.8-10.2); NEUT % 69.1 % (42.8-82.8); PLATELET COUNT 280 K/MM3 (134-434); RBC 3.83 M/mm3 (3.60-5.2); RDW 14.9 % (11.6-15.6); WHITE BLOOD COUNT 9.8 K/mm3 (4.0-10.0)
[2018-09-02 07:10] LABS: ANION GAP 7 MMOL/L (8-16); BLOOD UREA NITROGEN 25 mg/dL (7-18); CALCIUM 8.2 mg/dL (8.5-10.1); CHLORIDE 112 mmol/L (98-107); CO2 25 mmol/L (21-32); CREATININE 0.7 mg/dL (0.55-1.3); GLUCOSE,RANDOM 84 mg/dL (74-106); POTASSIUM 4.8 mmol/L (3.5-5.1); SODIUM 144 mmol/L (136-145)
[2018-09-02] MEDS: ALBUTEROL SO4 2.5/IPRATROPIUM 0.5 INH SOL 3 ML VIAL.NEB. NEB SCH (07:30)
[2018-09-02] MEDS ORDERED: DEXTROSE 5%-WATER 100 ML IVPB ONE (09:35)
[2018-09-02] MEDS: BUDESONIDE/FORMETEROL FUMARATE 80/4.5 mcg INHALER IH SCH (09:52)
[2018-09-02] MEDS: LOSARTAN POTASSIUM 50 MG TABLET (FP) PO SCH (09:53)
[2018-09-02] MEDS: DOXYCYCLINE HYCLATE 100 MG CAPSULE PO SCH (09:53)
[2018-09-02] MEDS: predniSONE 20 MG TABLET (UD) PO SCH (09:53)
[2018-09-02] MEDS: CEFTRIAXONE 2 GM in DEXTROSE 5%-WATER 100 ML IVPB SCH (09:53)
[2018-09-02] MEDS: POTASSIUM CHLORIDE ORAL LIQUID 20 MEQ/15 ML PO SCH (09:53)
[2018-09-02] MEDS: ENOXAPARIN NA (PORCINE) 40 MG/0.4 ML DISP.SYRIN SQ SCH (09:53)
--- NOTE | 2018-09-02 10:39 | DS ---
Physical Examination Vital Signs: Vital Signs Temperature 97.9 F 09/02/18 06:11 Pulse Rate 62 09/02/18 06:11 Respiratory Rate 18 09/02/18 06:11 Blood Pressure 133/72 09/02/18 06:11 O2 Sat by Pulse Oximetry (%) 99 09/02/18 08:02 Constitutional: Yes: Well Nourished, No Distress, Calm Cardiovascular: Yes: WNL, Regular Rate and Rhythm Respiratory: Yes: WNL, Regular, CTA Bilaterally, Cough, Rales (bibasilar). No: Accessory Muscle Use, SOB, SOB on Exertion, Tachypnea, Wheezes Gastrointestinal: Yes: WNL, Normal Bowel Sounds, Soft. No: Distention, Tenderness Renal/: Yes: WNL Extremities: Yes: WNL Edema: No Neurological: Yes: WNL, Alert, Oriented Psychiatric: Yes: WNL, Alert, Oriented Labs: CBC, BMP 09/02/18 05:30 09/02/18 05:30 Discharge Summary Reason For Visit: SHORTNESS OF BREATH, CHEST PAIN, COMMUNITY Current Active Problems Atypical mycobacterial infection of lung (Acute) COPD (chronic obstructive pulmonary disease) (Acute) COPD exacerbation (Acute) Hypokalemia (Acute) SOB (shortness of breath) (Acute) Hospital Course: 78 year old female admitted for evaluation of sob. trop x 3 neg, echo without acute changes. chest ct revealed possible rml infiltrate, pt evaluated by ID & pulm. wbc count 20k at admission, returned to normal today. Pt started on iv antibx for CAP, received 4 days of iv antibx, transitioned to po ceftin today, pt cleared by ID and pulm. Pt received steroids for possible copd exacerbation, transitioned to po prednisone x 4 days. Case discussed w/ pulm, ID. Pt is medically stable for discharge home. Vitals stable, labs unremarkable. F/u as directed 32 minutes spent in discharge planning Condition: Good - Instructions Diet, Activity, Other Instructions: antibx for 3 more days starting tomorrow prednisone 4 more days starting tomorrow repeat chest imaging in 6-8 weeks follow up as directed Referrals: Cristopher Yousif MD [Primary Care Provider] - 1 Week Rusty Pepper MD [Staff Physician] - 1 Month Disposition: HOME - Home Medications Comprehensive Discharge Medication List: Ambulatory Orders Anoro Ellipta 1 inh IH DAILY 08/30/18 Cefuroxime Axetil [Ceftin -] 500 mg PO BID 3 Days #6 tablet 09/02/18 Lactobacillus Acidophilus [Bacid -] 1 each PO DAILY 7 Days #7 capsule 09/02/18 Losartan Potassium [Cozaar -] 50 mg PO DAILY #30 tablet 09/02/18 predniSONE [Deltasone -] 40 mg PO DAILY 4 Days #4 tablet 09/02/18
[2018-09-02 11:01] VITALS: BP 138/85; PULSE 77; TEMP 97.8
[2018-09-03] MEDS ORDERED: CEFUROXIME AXETIL 500 MG TABLET PO SCH (10:00)
== END 2018-09-02 12:00 | disposition home or self-care (01) | DRG 194 ==
LOC: JER 15:44 → JERBED 22:28 → J8W 08-31 19:40 → JERBED 08-31 20:15 → J4W 09-01 14:15 → OBSVTOIN 09-01 14:55
PROVIDERS: ADMIT Internal Medicine; ATTEND Nurse Practitioner Family
DX: J18.9 Pneumonia, unspecified organism (principal); N39.0 Urinary tract infection, site not specified; I42.1 Obstructive hypertrophic cardiomyopathy; J44.1 Chronic obstructive pulmonary disease with (acute) exacerbation; R07.9 Chest pain, unspecified; I10 Essential (primary) hypertension; E87.6 Hypokalemia
CPT/HCPCS: 36415; 71045-TC-FY; 71275-TC; 80048; 80053; 80061; 81003; 81015; 82550; 82553; 82803; 83605; 83721; 83735; 83880; 84100; 84484; 85025; 85027; 85610; 85730; 87040; 87086; 87804; 87807; 87899; 93005; 93010; 93306-TC; 94640; 99285-25; G0378; J0131

== ENCOUNTER 2020-10-26 10:35 | Emergency (ER) | payer OTHER ==
[2020-10-26 11:14] VITALS: BMI 23.8
[2020-10-26] MEDS ORDERED: SODIUM CHLORIDE 0.9% 500 ML INFUS.BAG IV ONE (14:00)
[2020-10-26 15:01] LABS: BASO % 1.1 % (0-2.0); EOS % 3.5 % (0-4.5); HEMATOCRIT 40.6 % (32.4-45.2); HEMOGLOBIN 13.4 GM/dL (10.7-15.3); LYMPH % 11.3 % (8-40); MCH 30.5 pg (25.7-33.7); MCHC 33.1 g/dl (32.0-36.0); MEAN CELL VOLUME 92.3 fl (80-96); MEAN PLT VOLUME 9.5 fl (7.5-11.1); MONO % 6.9 % (3.8-10.2); NEUT % 77.2 % (42.8-82.8); PLATELET COUNT 336 K/MM3 (134-434); RDW 14.2 % (11.6-15.6); WHITE BLOOD COUNT 10.9 K/mm3 (4.0-10.0)
[2020-10-26 15:21] LABS: EPI CELLS 7 /uL (0-25.1); HYALINE CASTS 0 /uL (0-3.1); PH,URINE 7.5 (5.0-8.0); URINE APPEARANCE CLEAR; URINE BACTERIA 242 /uL (0-1359); URINE BILIRUBIN NEGATIVE (NEGATIVE); URINE COLOR YELLOW; URINE GLUCOSE (UA) NEGATIVE (NEGATIVE); URINE KETONE 1+ (NEGATIVE); URINE LEUK ESTERASE TRACE (NEGATIVE); URINE NITRITE NEGATIVE (NEGATIVE); URINE PROTEIN NEGATIVE (NEGATIVE); URINE RBC 28 /uL (0-23.9); URINE WBC 9 /uL (0-25.8)
[2020-10-26 15:24] LABS: CHLORIDE 108 mmol/L (98-107); POTASSIUM 4.5 mmol/L (3.5-5.1); SODIUM 139 mmol/L (136-145)
[2020-10-26 15:26] LABS: CALCIUM 9.2 mg/dL (8.5-10.1)
[2020-10-26 15:27] LABS: ALBUMIN 3.5 g/dl (3.4-5.0); ANION GAP 8 MMOL/L (8-16); BLOOD UREA NITROGEN 14.4 mg/dL (7-18); CO2 23 mmol/L (21-32); GLUCOSE,RANDOM 79 mg/dL (74-106)
[2020-10-26 15:30] LABS: CREATININE 0.7 mg/dL (0.55-1.3); SGOT/AST 27 U/L (15-37); SGPT/ALT 20 U/L (13-61)
[2020-10-26 15:32] LABS: BILIRUBIN,TOTAL 0.4 mg/dL (0.2-1); TOT PROT 7.6 g/dl (6.4-8.2)
[2020-10-26 15:33] LABS: ALK PHOS 78 U/L (45-117)
[2020-10-26 15:35] LABS: N-TERMINAL BNP 716.7 pg/ml (5-450)
[2020-10-26 16:51] VITALS: BP 158/64; PULSE 67; TEMP 98.3
== END 2020-10-26 17:03 | disposition home or self-care (01) ==
LOC: JER 10:35
DX: R42 Dizziness and giddiness (principal)
CPT/HCPCS: 36415; 70450-TC; 71045-TC-FY; 80053; 81003; 82550; 82553; 83735; 83880; 84484; 85025; 87086; 93005; 93010; 99285-25; C9803; U0003